=== PATIENT | male | born 1950 | race Caucasian/White ===

== ENCOUNTER 2017-10-23 00:47 | Emergency (ER) | payer OTHER ==
--- NOTE | 2017-10-23 01:30 | ED ---
Chest Pain HPI - General Chief Complaint: Chest Pain Stated Complaint: Chest Pain/Hx AFib Time Seen by Provider: 10/23/17 01:22 Source: patient, family Mode of arrival: wheelchair Limitations: no limitations - History of Present Illness Initial Comments: This patient is a 66-year-old man who presents to be evaluated for palpitations and chest tightness. The patient states that this is identical to previous episodes in which she has had atrial fibrillation. He states that he tried to manage at home with his medication, and when the symptoms did not resolve after about 3 hours he decided to be seen here. He states that now the symptoms have entirely resolved. The patient denies having had any diaphoresis, nausea or vomiting. MD Complaint: chest pain, other (Palpitations) Onset/Timin -: hour(s) Onset: during rest Pain Location: substernal Pain Radiation: none Severity: mild Quality: tightness Consistency: constant, now resolved Improves With: nothing Worsens With: nothing Treatments Prior to Arrival: other - Related Data Home Medications Medication Instructions Recorded Confirmed Enalapril/Hydrochlorothiazide 1 tab PO DAILY 12/11/14 10/23/17 [Vaseretic 5-12.5 mg] Insulin NPH Hum/Reg Insulin Hm 50 unit SQ BID 12/11/14 10/23/17 [NovoLIN 70-30 100 UNIT/ML VIAL] Metoprolol Tartrate [Lopressor] 50 mg PO BID 12/11/14 10/23/17 Simvastatin [Zocor] 80 mg PO HS 12/11/14 10/23/17 Sotalol HCl [Betapace] 80 mg PO BID 12/11/14 10/23/17 Warfarin [Coumadin] 2.5 mg PO DIRECTED 12/11/14 10/23/17 Warfarin [Coumadin] 5 mg PO DIRECTED 12/11/14 10/23/17 glyBURIDE [Diabeta] 10 mg PO AC-BID 12/11/14 10/23/17 metFORMIN HCL 1,000 mg PO BID 12/11/14 10/23/17 Allergies Allergy/AdvReac Type Severity Reaction Status Date / Time No Known Allergies Allergy Verified 10/23/17 00:51 Review of Systems ROS Statement: Those systems with pertinent positive or pertinent negative responses have been documented in the HPI. ROS Other: All systems not noted in ROS Statement are negative. Constitutional: Denies: fever, chills, weakness Respiratory: Reports: dyspnea. Denies: cough, wheezes Cardiovascular: Reports: chest pain, palpitations. Denies: orthopnea, edema, syncope Gastrointestinal: Denies: abdominal pain, nausea, vomiting Musculoskeletal: Denies: back pain Skin: Denies: rash Neurological: Denies: headache, weakness, numbness EKG Findings - EKG Results: EKG: interpreted by EDYTA MONROY, sinus rhythm (Rate approximately 74 bpm), normal axis, normal QRS, normal ST/T, no acute changes - [place], Pacemaker, Normal: Normal tracing: normal tracing Past Medical History Past Medical History: Atrial Fibrillation, Diabetes Mellitus, Hyperlipidemia, Hypertension History of Any Multi-Drug Resistant Organisms: None Reported Past Surgical History: Back Surgery Past Psychological History: No Psychological Hx Reported Smoking Status: Never smoker Past Alcohol Use History: None Reported Past Drug Use History: None Reported General Exam Limitations: no limitations General appearance: alert, in no apparent distress Head exam: Present: atraumatic, normocephalic Eye exam: Present: normal appearance. Absent: scleral icterus, conjunctival injection ENT exam: Present: normal oropharynx Neck exam: Present: normal inspection Respiratory exam: Present: normal lung sounds bilaterally. Absent: respiratory distress, wheezes, rales, rhonchi, stridor, chest wall tenderness, accessory muscle use, decreased breath sounds Cardiovascular Exam: Present: regular rate, normal rhythm, normal heart sounds. Absent: systolic murmur, diastolic murmur, rubs, gallop GI/Abdominal exam: Present: soft. Absent: distended, tenderness, guarding, rebound, mass Extremities exam: Present: normal inspection, normal capillary refill. Absent: pedal edema, calf tenderness Back exam: Present: normal inspection. Absent: CVA tenderness (R), CVA tenderness (L) Neurological exam: Present: alert Skin exam: Present: warm, dry, intact, normal color. Absent: rash Course Vital Signs 10/23/17 10/23/17 10/23/17 00:47 03:04 03:16 Temperature 98 F 98.9 F 97.7 F Pulse Rate 74 60 88 Respiratory 20 18 18 Rate Blood Pressure 193/83 165/75 149/72 O2 Sat by Pulse 100 100 98 Oximetry Chest Pain [facility] Patient is a 66-year-old man presenting with what sounds like episode of paroxysmal atrial fibrillation. He states the symptoms have subsequently resolved. His workup here is negative. Discussed admission to observe on the monitor and have serial cardiac enzymes, but the patient declines. He states that he has been through this before, and feels he has a good awareness of the problem. He is going to follow-up with the beater lead as outpatient. He does agree to return should any symptoms recur or if there are any new symptoms. Disposition Clinical Impression: Chest pain Disposition: HOME SELF-CARE Condition: Good Instructions: Chest Pain (ED) Is patient prescribed a controlled substance at d/c from ED?: No Referrals: Natanael Lobo MD [Primary Care Provider] - 1-2 days
[2017-10-23 02:01] LABS: Basophils % (A) 0 %; Eosinophils # (A) 0.8 k/uL (0-0.7); Eosinophils % (A) 8 %; HCT 36.2 % (39.0-53.0); HGB 11.9 gm/dL (13.0-17.5); Lymphocytes # (A) 2.4 k/uL (1.0-4.8); Lymphocytes % (A) 23 %; MCH 29.4 pg (25.0-35.0); MCV 89.3 fL (80.0-100.0); Mean Platelet Volume 7.4; Monocytes # (A) 0.6 k/uL (0-1.0); Monocytes % (A) 6 %; Neutrophils # (A) 6.5 k/uL (1.3-7.7); Neutrophils % (A) 61 %; Platelet Count 198 k/uL (150-450); RBC 4.05 m/uL (4.30-5.90); RDW 13.6 % (11.5-15.5); WBC 10.6 k/uL (3.8-10.6)
--- NOTE | 2017-10-23 02:01 | XR ---
EXAMINATION TYPE: XR chest 1V portable DATE OF EXAM: 10/23/2017 COMPARISON: 04/14/2011 HISTORY: Atrial fibrillation TECHNIQUE: Single frontal view of the chest is obtained. FINDINGS: Heart and mediastinum are normal. Lungs are clear. Diaphragm is normal. Bony thorax appear s normal. IMPRESSION: Normal chest. There is clearing of minimal atelectasis at left lung base compared to old exam.
[2017-10-23 02:14] LABS: D-Dimer 0.2 mg/L FEU (<0.60); INR 2.5 (<1.2); Partial Thromboplastin Time 34.2 sec (22.0-30.0); Prothrombin Time 22.3 sec (9.0-12.0)
[2017-10-23 02:23] LABS: Calcium 9.4 mg/dL (8.4-10.2); Magnesium 1.6 mg/dL (1.6-2.3); Potassium 4.4 mmol/L (3.5-5.1); Total Bilirubin 0.3 mg/dL (0.2-1.3); Total Protein 6.7 g/dL (6.3-8.2)
[2017-10-23 02:27] LABS: Creatine Kinase 139 U/L (55-170)
[2017-10-23 02:40] LABS: Creatine Kinase MB 1.3 ng/mL (0.0-2.4); Troponin I <0.012 ng/mL (0.000-0.034)
[2017-10-23 03:05] VITALS: RESP 18
[2017-10-23 03:17] VITALS: BP 149/72; PULSE 88; TEMP 97.7
== END 2017-10-23 03:17 | disposition home or self-care (01) ==
LOC: EC 00:47
DX: R07.2 Precordial pain (principal); R00.2 Palpitations; I48.91 Unspecified atrial fibrillation; E11.9 Type 2 diabetes mellitus without complications; E78.5 Hyperlipidemia, unspecified; I10 Essential (primary) hypertension; Z79.01 Long term (current) use of anticoagulants; Z79.4 Long term (current) use of insulin; Z79.899 Other long term (current) drug therapy
CPT/HCPCS: 36415; 71045; 80053; 82150; 82550; 82553; 83690; 83735; 84484; 85025; 85379; 85610; 85730; 93005; 99285

== ENCOUNTER → 2017-12-29 | Day surgery (SDC) | payer MEDICARE, OTHER ==
[2017-12-26 13:14] VITALS: BMI 32.6
[~2017-12-29] MED LIST: LIDOCAINE 1% INJ 10MG/ML (20 ML MDV) ONE; LIDOCAINE 1% INJ 10MG/ML (20 ML MDV) SQ ONE; MIDAZOLAM 2 MG/2 ML VIAL IVP ONE; MIDAZOLAM 2 MG/2 ML VIAL ONE; SODIUM CHLORIDE 0.9% 1,000 ML IV SCH; SODIUM CHLORIDE 0.9% 500 ML IV ONE; ceFAZolin 2,000 MG in DEXTROSE/WATER 1 50ML.BAG IVPB ONE; ceFAZolin IN SWFI 2 GM/20 ML SYRINGE IVP ONE
[2017-12-29 11:21] VITALS: BP 169/84; PULSE 57; TEMP 98.9
[2017-12-29 11:46] LABS: Glucose,Whole Blood 98 mg/dL (75-99)
[2017-12-29 11:59] LABS: Prothrombin Time 26.6 sec (9.0-12.0)
--- NOTE | 2017-12-29 12:39 | P.PCN ---
Preoperative Diagnosis: Loop monitor implant Primary physicians: Dr. Natanael Lobo Business Analyst: Dr. Arreguin Indication: Recurrent palpitations, possible atrial fibrillation, no documentation, Sick Sinus Syndrome/chronotropic competence Patient was brought to the EP lab in a fasting state. Written informed consent was obtained prior to the procedure. The left pectoral area was prepped and draped per protocol. Intravenous antibiotic was administered preoperatively. A subcutaneous Loop monitor was implanted successfully and the wound was closed per protocol. The device was programmed to detect significant cam- arrhythmic and tachy-arrhythmic events, per protocol. Device and programming details: A. fib protocol Patient underwent EP procedure under conscious sedation/moderate sedation, monitoring of the level of consciousness and physiologic parameters including but not limited to vital signs and oxygenation. Patient tolerated the procedure well without any acute complications. Start time: 1217 Stop time: 1225 8 minutes
[2017-12-29 13:04] VITALS: RESP 18
== END | disposition home or self-care (01) ==
LOC: CATHEP 10:50
PROVIDERS: ATTEND Internal Medicine Clinical Cardiac Electrophysiology
DX: R00.2 Palpitations (principal); I49.5 Sick sinus syndrome
CPT/HCPCS: 33282; 85610; C1764; J2250; J2001; J0690

== ENCOUNTER 2018-09-13 07:40 | Day surgery (SDC) | payer MEDICARE, OTHER ==
[2018-09-08 09:40] VITALS: BMI 33.2
--- NOTE | 2018-09-12 13:15 | HP ---
HISTORY AND PHYSICAL Surgery is 09/13/2018. Tay Mueller is a 67-year-old patient seen with progressive left knee pain. We discussed options. He elected to proceed with arthroscopy. Consent was obtained. Cardiac clearance by Dr. Matos. PAST MEDICAL HISTORY: Hypertension, hyperlipidemia, insulin-dependent diabetes, atrial fibrillation. PAST SURGICAL HISTORY: Sinus surgery. DAILY MEDICATIONS: 1. Lisinopril/hydrochlorothiazide. 2. Metformin. 3. Metoprolol. 4. Novolin insulin. 5. Simvastatin. 6. Xarelto. ALLERGIES: None. SOCIAL HISTORY: Denies tobacco use. PHYSICAL EXAMINATION: Physical evaluation of the left knee: His range of motion is 0 to 115 degrees. Mild effusion. Tenderness medial joint line. Positive medial Thomas's. Ligaments stable. Hip rotation without pain. Distal neurovascular exam intact. Left knee radiographs revealed moderate osteoarthritis. IMPRESSION: 1. Internal derangement left knee with medial meniscal tear. 2. Left knee osteoarthritis. PLAN: Left knee arthroscopy with partial meniscectomy and debridement. MMODL / IJN: [id number] /
[~2018-09-13 07:40] MED LIST changes: +LACTATED RINGERS 1,000 ML IV SCH; +LIDOCAINE 1% 20 ML VIAL (10MG/ML) FOR IV START INTRADERMA PRN; -LIDOCAINE 1% INJ 10MG/ML (20 ML MDV) ONE; -LIDOCAINE 1% INJ 10MG/ML (20 ML MDV) SQ ONE; -MIDAZOLAM 2 MG/2 ML VIAL IVP ONE; -MIDAZOLAM 2 MG/2 ML VIAL ONE; +ONDANSETRON 4 MG/2 ML VIAL IVP ONE; -SODIUM CHLORIDE 0.9% 1,000 ML IV SCH; -SODIUM CHLORIDE 0.9% 500 ML IV ONE; -ceFAZolin 2,000 MG in DEXTROSE/WATER 1 50ML.BAG IVPB ONE
[2018-09-13 08:42] LABS: Glucose,Whole Blood 181 mg/dL (75-99)
[2018-09-13] MEDS ORDERED: fentaNYL (PF) 50 MCG/ML 2 ML AMP ONE (09:48)
[2018-09-13] MEDS ORDERED: PROPOFOL 10 MG/ML 20 ML VIAL IV ONE (09:48)
[2018-09-13] MEDS ORDERED: MIDAZOLAM 2 MG/2 ML VIAL ONE (09:48)
[2018-09-13] MEDS ORDERED: DEXAMETHASONE SOD PHOS (MDV) 100 MG/10 ML VIAL ONE (09:48)
[2018-09-13] MEDS ORDERED: LIDOCAINE 1% INJ 10MG/ML (20 ML MDV) ONE (09:48)
[2018-09-13] MEDS ORDERED: BUPIVACAIN-EPI 0.5%-1:200,000 30 ML VIAL INTRAARTIC ONE (09:52)
[2018-09-13 10:37] VITALS: TEMP 97.4
--- NOTE | 2018-09-13 10:40 | P.OP ---
Date of Procedure: 09/13/18 Preoperative Diagnosis: Internal derangement left knee Postoperative Diagnosis: 1. Tear lateral meniscus left knee 2. Grade 4 chondromalacia medial femoral condyle left knee 3. Reactive synovitis medial, lateral and suprapatellar compartments left knee Procedure(s) Performed: 1. Arthroscopic partial lateral meniscectomy left knee 2. Arthroscopic chondroplasty medial femoral condyle left knee 3. Arthroscopic microfracture medial femoral condyle left knee 4. Arthroscopic partial synovectomy medial, lateral and suprapatellar compartments left knee Anesthesia: GUSA, local Surgeon: Manish Vergara Estimated Blood Loss (ml): 7 Pathology: none sent Condition: stable Disposition: PACU Indications for Procedure: 67-year-old patient seen with progressive left knee pain. After having treatment options discussed, he elected to proceed with arthroscopy. Operative Findings: See description of procedure Description of Procedure: Patient was taken to the operative suite. Patient underwent a general anesthetic by the department of anesthesia. Patient was given preoperative antibiotics. The left lower extremity was placed in a well-padded arthroscopic leg humphries. The left leg was prepped and draped in the normal sterile orthopedic fashion. A lateral parapatellar and suprapatellar incision was made. Trochars were inserted. Arthroscopy was initiated. Suprapatellar pouch revealed diffuse thick reactive synovitis. The patellofemoral joint appeared to articulate congruently. There was grade 1 chondromalacia with no osteochondral tears present. The scope was guided into the medial gutter. No loose bodies or plica were identified. The scope was then guided into the medial compartment. A medial parapatellar incision was made. Trocar inserted followed by probe. The medial meniscus was found to be stable. There was an area of grade 4 chondromalacia medial femoral condyle with large osteochondral flap tears. There was thick reactive synovitis anteriorly. I performed a chondroplasty of the medial femoral condyle down to stable tissue. I performed a partial synovectomy decompressing thick reactive synovitis. There was good decompression of synovitis. There was an area of exposed bone medial femoral condyle. I performed a microfracture to that area penetrating the bone with resultant bleeding at the microfracture site. The residual osteochondral surface was stable. Scope and probe were then guided into the intercondylar notch. Cruciates were identified, probed and found to be stable. The scope and probe were then guided into lateral compartment. There was a radial tear invo lving the midbody lateral meniscus. No some superficial fraying of the lateral meniscus. There was a grade 1 chondromalacia lateral tibial plateau with no osteochondral tears present. There was thick reactive synovitis anteriorly. I performed a partial lateral meniscectomy down to stable tissue. I performed a partial synovectomy decompressing the thick reactive synovitis. The residual meniscus was stable. There was good decompression of synovitis. The scope was in guided back into the suprapatellar compartment. I introduced a motorized shaver into the suprapatellar compartment. I debrided some piecemeal fragments of meniscus I encountered. I performed a partial synovectomy decompressing the reactive synovitis. The shaver was removed. There was good decompression of synovitis. I took one more look on the entire knee, no residual debris. Instruments were now removed from the joint. The joint was infiltrated with .25% Marcaine. Steri-Strips were applied to the portal sites. Sterile dressings were applied. The patient was placed into a NIKOLAI hose. No tourniquet was utilized. The patient was awakened, transferred to a bed and taken to recovery stable satisfactory condition.
[2018-09-13] MEDS: HYDROmorphone 0.5 MG/0.5 ML SYRINGE IVP PRN ×2 (10:44→10:51)
[2018-09-13] MEDS ORDERED: KETOROLAC 30 MG/ML 1 ML VIAL IVP ONE (10:44)
[2018-09-13 10:49] LABS: Glucose,Whole Blood 181 mg/dL (75-99)
[2018-09-13 11:44] VITALS: RESP 18
[2018-09-13] MEDS ORDERED: ONDANSETRON 4 MG/2 ML VIAL IVP ONE (12:45)
[2018-09-13 13:19] VITALS: BP 174/72; PULSE 53
[2018-09-13 13:24] LABS: Glucose,Whole Blood 231 mg/dL (75-99)
== END 2018-09-13 13:30 | disposition home or self-care (01) ==
LOC: OR 07:40
PROVIDERS: ATTEND Orthopaedic Surgery
DX: S83.282A Other tear of lateral meniscus, current injury, left knee, initial encounter (principal); M65.862 Other synovitis and tenosynovitis, left lower leg; I48.91 Unspecified atrial fibrillation; M94.262 Chondromalacia, left knee; M17.12 Unilateral primary osteoarthritis, left knee; E78.5 Hyperlipidemia, unspecified; E11.9 Type 2 diabetes mellitus without complications; N28.9 Disorder of kidney and ureter, unspecified; I10 Essential (primary) hypertension; Z79.01 Long term (current) use of anticoagulants; Z79.4 Long term (current) use of insulin; Z79.899 Other long term (current) drug therapy; X58.XXXA Exposure to other specified factors, initial encounter
CPT/HCPCS: 29881; 29879; J2250; J2405; J2001; J3010; J1885; J1100; J2704; J1170; J0690

== ENCOUNTER 2020-01-11 06:21 | Day surgery (SDC) | payer MEDICARE, OTHER ==
[~2020-01-11 06:21] MED LIST changes: +ALPRAZolam 0.25 MG TAB PO PRN; +ALPRAZolam 0.5 MG TAB PO PRN; +ASPIRIN 325 MG TAB PO STA; +ATORVASTATIN 80 MG TAB PO STA; -LACTATED RINGERS 1,000 ML IV SCH; -LIDOCAINE 1% 20 ML VIAL (10MG/ML) FOR IV START INTRADERMA PRN; +NITROGLYCERIN SL TABS 0.4 MG TAB SUBLINGUAL PRN; -ONDANSETRON 4 MG/2 ML VIAL IVP ONE; +SODIUM CHLORIDE 0.9% 1,000 ML in EMPTY BAG 1 BAG IV ONE; -ceFAZolin IN SWFI 2 GM/20 ML SYRINGE IVP ONE
[2020-01-11 06:57] LABS: Glucose,Whole Blood 137 mg/dL (75-99)
[2020-01-11] MEDS ORDERED: MIDAZOLAM 2 MG/2 ML VIAL IV ONE (10:15)
[2020-01-11] MEDS ORDERED: LIDOCAINE 1% INJ 10MG/ML (20 ML MDV) SQ ONE (10:19)
[2020-01-11] MEDS ORDERED: BIVALIRUDIN BOLUS 250 MG/50 ML IV ONE (10:54)
[2020-01-11] MEDS ORDERED: BIVALIRUDIN 250 MG in SODIUM CHLORIDE 0.9% 50 ML IV ONE (10:55)
[2020-01-11] MEDS ORDERED: TICAGRELOR 90 MG TAB PO ONE (11:10)
[2020-01-11] MEDS ORDERED: NITROGLYCERIN 1000MCG/10ML SYRINGE INTRACORON ONE (11:16)
[2020-01-11] MEDS ORDERED: IOPAMIDOL-370 125ML BTL INJ ONE (11:21)
[2020-01-11] MEDS ORDERED: MAG HYDROX/AL HYDROX/SIMETH 30 ML CUP PO PRN (11:27)
[2020-01-11] MEDS ORDERED: NITROGLYCERIN SL TABS 0.4 MG TAB SUBLINGUAL PRN (11:27)
[2020-01-11] MEDS ORDERED: ATROPINE SULFATE 0.1 MG/ML 10ML SYRINGE IV PRN (11:27)
[2020-01-11] MEDS ORDERED: ZOLPIDEM 5 MG TAB PO PRN (11:27)
[2020-01-11] MEDS ORDERED: RX INFO: IV CONTRAST WAS GIVEN 1 EACH MISC MISCELLANE PRN (11:27)
[2020-01-11] MEDS ORDERED: SODIUM CHLORIDE 0.9% 1,000 ML IV SCH (11:30)
--- NOTE | 2020-01-11 12:10 | CC ---
CARDIAC CATHETERIZATION REPORT INDICATION: Exertional shortness of breath with abnormal stress test showing ischemia in LAD distribution. PROCEDURE NOTE: After obtaining informed consent, left heart catheterization and coronary angiogram were performed via the right femoral artery using standard Vanessa catheters. Patient tolerated the procedure well without any obvious immediate complications. The patient had elevated potassium prior to catheterization,. I gave him Kayexalate. He has renal insufficiency. I brought him early and hydrated him this morning. He understands the risk of contrast-induced nephropathy. FINDINGS: 1. HEMODYNAMICS: Left ventricular end-diastolic pressure is 14-16 mm. There is no significant gradient across the aortic valve. 2. LEFT VENTRICULOGRAM: Left ventricular is not performed. 3. ANGIOGRAPHIC DATA: LEFT MAIN CORONARY ARTERY: Left main coronary artery appears calcified but is free of significant stenosis. Divides into left anterior descending coronary artery and circumflex coronary artery and ramus intermedius. CIRCUMFLEX CORONARY ARTERY: A codominant system, appears calcified with mild nonobstructive CAD. Ramus intermedius, which is a small caliber vessel, shows a 60%-70% ostial lesion. LAD has a focal heavily calcified 90% stenosis in its midportion. Right coronary: There are extensive collaterals to the distal RCA. RIGHT CORONARY ARTERY: Right coronary artery is chronically occluded in its midportion. CONCLUSION: 1. Three-vessel coronary artery disease as described above. 2. Calcified vessels. 3. Focal stenotic lesion in the mid LAD, which explains the ischemia, chronically occluded right. PLAN: I reviewed angiographic data with Dr. Montgomery the on-call treating plant supervisor, who will proceed with angioplasty of the LAD. The patient is having recurrent episodes of atrial fibrillation and will probably benefit from atrial fibrillation. This can be addressed at a later time. After the angioplasty, he will spend the night and will continue to hydrate him and check the electrolytes on him tomorrow morning. MMODL / IJN: [id number] /
--- NOTE | 2020-01-11 12:56 | PTCA ---
PERCUTANEOUSTRANS CORORONARY ANGIOGRAPHY DATE OF SERVICE: 01/11/2020. PERFORMING PHYSICIAN: Ebenezer Montgomery MD. PROCEDURE PERFORMED: Successful stenting of the mid left anterior descending artery using 2.75 x 12 mm Xience KEVIN with an excellent angiographic result and reduction of stenosis from 99% to 0%. INDICATION: This is a 69-year-old gentleman with chronic kidney disease, as well as hypertension and dyslipidemia and paroxysmal atrial fibrillation, who was experiencing symptoms of chest discomfort. He underwent a stress test and that revealed an anterior ischemia. Because of that, a heart catheterization was advised. The patient underwent a heart catheterization by Dr. Selby and that revealed critical disease involving the mid LAD with very eccentric and calcified lesion. The decision was made toward percutaneous coronary intervention. APPROACH: Right common femoral artery. COMPLICATION: None. LEVEL OF SEDATION: Moderate with sedation length of 27 minutes. PROCEDURE DESCRIPTION: Please refer to the diagnostic heart catheterization that was performed by Dr. Selby earlier today. Anticoagulation was initiated using Angiomax. Subsequently I did engage the left main using an XP35 LAD guide. I did cross the lesion using a whisper wire. Subsequently, I did predilatation initially using 1.5 mm balloon and subsequently 2.5 mm. Both balloons were inflated under 12 atmospheres for 20 seconds. Subsequently, I deployed 2.75 x 12 mm Xience KEVIN where the stent was positioned under fluoroscopy guidance and deployed under 12 atmospheres for 20 seconds. The following angiogram showed excellent angiographic results and the procedure was completed without any complication. POSTPROCEDURE MANAGEMENT: 1. Anticoagulation and anti-platelet as well as anticoagulation. 2. Monitor the patient for the next 24 hours. 3. Standard groin care. 4. Follow up with the patient. MMODL / IJN: [id number] /
[2020-01-11 14:32] LABS: Glucose,Whole Blood 126 mg/dL (75-99)
[2020-01-11 15:36] VITALS: BMI 33.1
[2020-01-11 17:00] LABS: Glucose,Whole Blood 116 mg/dL (75-99)
[2020-01-11 18:05] VITALS: RESP 16
[2020-01-11] MEDS ORDERED: SOTALOL 80 MG TAB PO SCH (21:00)
[2020-01-11 21:17] LABS: Glucose,Whole Blood 303 mg/dL (75-99)
[2020-01-11] MEDS: TICAGRELOR 90 MG TAB PO SCH (21:28)
[2020-01-11] MEDS: METOPROLOL TARTRATE 50 MG TAB PO SCH (21:28)
[2020-01-11] MEDS: INSULN ASP PRT/INSULIN ASPART 100 UNIT/ML 10 ML VIAL SQ SCH (22:10)
[2020-01-12 00:38] LABS: Glucose,Whole Blood 119 mg/dL (75-99)
[2020-01-12 04:11] LABS: Glucose,Whole Blood 48 mg/dL (75-99)
[2020-01-12 04:29] LABS: Glucose,Whole Blood 65 mg/dL (75-99)
[2020-01-12 04:49] LABS: Glucose,Whole Blood 91 mg/dL (75-99)
[2020-01-12 06:27] LABS: Basophils # (A) 0.1 k/uL (0-0.2); Basophils % (A) 0 %; Eosinophils # (A) 0.2 k/uL (0-0.7); Eosinophils % (A) 1 %; HCT 39.7 % (39.0-53.0); HGB 12.5 gm/dL (13.0-17.5); Lymphocytes # (A) 2.2 k/uL (1.0-4.8); Lymphocytes % (A) 16 %; MCH 28.5 pg (25.0-35.0); MCHC 31.4 g/dL (31.0-37.0); MCV 90.8 fL (80.0-100.0); Mean Platelet Volume 7.9; Monocytes # (A) 0.9 k/uL (0-1.0); Monocytes % (A) 6 %; Neutrophils # (A) 10.3 k/uL (1.3-7.7); Neutrophils % (A) 75 %; Platelet Count 219 k/uL (150-450); RBC 4.38 m/uL (4.30-5.90); RDW 13.1 % (11.5-15.5); WBC 13.7 k/uL (3.8-10.6)
[2020-01-12 06:33] LABS: Calcium 9.6 mg/dL (8.4-10.2); Potassium 4.5 mmol/L (3.5-5.1)
[2020-01-12 06:49] LABS: Glucose,Whole Blood 276 mg/dL (75-99)
[2020-01-12] MEDS: INSULN ASP PRT/INSULIN ASPART 100 UNIT/ML 10 ML VIAL SQ SCH (07:04)
[2020-01-12 08:10] VITALS: PULSE 63; TEMP 97.9
[2020-01-12 08:43] VITALS: BP 124/63
[2020-01-12] MEDS ORDERED: ATORVASTATIN 40 MG TAB PO SCH (09:00)
[2020-01-12] MEDS ORDERED: LISINOPRIL-HCTZ 20-12.5 MG 1 EACH TAB PO SCH (09:00)
[2020-01-12] MEDS: METOPROLOL TARTRATE 50 MG TAB PO SCH (10:25)
[2020-01-12] MEDS: TICAGRELOR 90 MG TAB PO SCH (10:26)
--- NOTE | 2020-01-12 10:52 | PN ---
PROGRESS NOTE Mr. Mueller is a 69-year-old male with a known history of atrial arrhythmia, history of hyperlipidemia, who had an abnormal myocardial perfusion imaging. Underwent cardiac catheterization and was found to have significant obstructive disease involving the LAD. Underwent stenting by Dr. Montgomery. He is doing well this morning. Ambulating without difficulty. Denying any chest pain. No dizziness. No palpitation. On the monitor, he had some episodes of atrial arrhythmia with what appears to be atrial fibrillation. MEDICATIONS: He continues to be on Lipitor 40 mg daily, lisinopril HCT 20-12.5 mg daily, metoprolol tartrate 50 mg twice a day, sotalol 80 mg twice a day, Brilinta 90 mg twice a day. PHYSICAL EXAMINATION: Blood pressure 109/50 with a heart in the 60s. LUNGS: Clear. HEART: Regular rate and rhythm S1, S2. No S3 with systolic ejection murmur. No diastolic murmur. No rub. ABDOMEN: Soft, nontender. EXTREMITIES: No edema. LAB DATA: BUN and creatinine 23 and 1.6. Potassium 4.5. Hemoglobin of 12.5. IMPRESSION: 1. Status post stenting of the left anterior descending. 2. Paroxysmal atrial fibrillation. 3. Hypertension. 4. Hyperlipidemia. 5. Chronic kidney disease. RECOMMENDATION: Patient will be discharged home today. I will re-initiate the treatment with Xarelto. We will hold his aspirin. He will follow up with Dr. Selby next week. MMODL / IJN: [id number] /
== END 2020-01-12 11:30 | disposition home or self-care (01) ==
LOC: CATHCVL 06:21 → 3NCARDOBS 11:20 → CATHCVL 01-12 11:30
PROVIDERS: ATTEND Internal Medicine Cardiovascular Disease
DX: I25.10 Atherosclerotic heart disease of native coronary artery without angina pectoris (principal); I25.82 Chronic total occlusion of coronary artery; I48.0 Paroxysmal atrial fibrillation; I12.9 Hypertensive chronic kidney disease with stage 1 through stage 4 chronic kidney disease, or unspecified chronic kidney disease; N18.9 Chronic kidney disease, unspecified; E78.5 Hyperlipidemia, unspecified; Z79.02 Long term (current) use of antithrombotics/antiplatelets; Z79.899 Other long term (current) drug therapy
CPT/HCPCS: 93458; 80048; 85025; C9600; C1769 ×4; C1760; C1725 ×2; C1887; C1894; C1874; J2250; J2001; J0583; Q9967

== ENCOUNTER → 2021-10-22 | Outpatient (CLI) | payer MEDICARE, OTHER ==
[2021-10-22 08:19] LABS: HCT 35.5 % (39.0-53.0); HGB 11.4 gm/dL (13.0-17.5); MCH 29.5 pg (25.0-35.0); MCHC 32.1 g/dL (31.0-37.0); Mean Platelet Volume 7.7; Platelet Count 219 k/uL (150-450); RBC 3.86 m/uL (4.30-5.90); RDW 13.8 % (11.5-15.5); WBC 9.5 k/uL (3.8-10.6)
[2021-10-22 14:47] LABS: Ferritin 60.7 ng/mL (22.0-322.0)
[2021-10-22 14:48] LABS: % Iron Saturation 18.91 (15.00-50.00)
[2021-10-22 19:34] LABS: Eosinophils # (M) 0.19 k/uL (0-0.7); Lymphocytes # (M) 3.33 k/uL (1.0-4.8); Monocytes # (M) 0.67 k/uL (0-1.0); Neutrophils # (M) 5.32 k/uL (1.3-7.7); Neutrophils % (M) 56 %; Nucleated Red Blood Cells 0 /100 WBC (0-0); Total Cells Counted 100
== END | disposition home or self-care (01) ==
LOC: LABWHC1 07:02
PROVIDERS: ATTEND Internal Medicine
DX: D72.829 Elevated white blood cell count, unspecified (principal); D64.9 Anemia, unspecified
CPT/HCPCS: 36415; 82607; 82728; 82746; 83540; 83550; 85025

== ENCOUNTER 2021-12-09 07:04 | Emergency (ER) | payer MEDICARE, OTHER ==
[2021-12-09 07:09] VITALS: RESP 18; TEMP 98.1
[2021-12-09] MEDS ORDERED: SODIUM CHLORIDE 0.9% 1,000 ML IV STA ×2 (07:15→08:42)
[2021-12-09] MEDS ORDERED: DICYCLOMINE 10 MG/ML 2 ML AMP IM STA (07:15)
[2021-12-09] MEDS ORDERED: ONDANSETRON 4 MG/2 ML VIAL IVP STA (07:15)
[2021-12-09] MEDS ORDERED: FAMOTIDINE 20 MG/2 ML VIAL IV STA (07:16)
--- NOTE | 2021-12-09 07:18 | ED ---
General Adult HPI - General Chief complaint: Abdominal Pain Stated complaint: Abdominal pain, diarrhea Time Seen by Provider: 12/09/21 07:10 Source: patient, RN notes reviewed Mode of arrival: ambulatory Limitations: no limitations - History of Present Illness Initial comments: Patient is a pleasant 71-year-old male presenting to the emergency department abdominal discomfort. Onset of symptoms was today. Patient has been having diarrhea a couple of times daily for the past almost 2 weeks. Patient has some nausea and dry heaves this morning. No fever. No history of similar symptoms previously. Abdominal pain is mostly left lower abdomen. - Related Data Home Medications Medication Instructions Recorded Confirmed Insulin NPH Hum/Reg Insulin Hm 65 unit SQ BID 12/11/14 01/11/20 [NovoLIN 70-30 100 UNIT/ML VIAL] Metoprolol Tartrate [Lopressor] 50 mg PO BID 12/11/14 01/11/20 Simvastatin [Zocor] 80 mg PO DAILY 12/11/14 01/11/20 Sotalol HCl [Betapace] 80 mg PO BID 12/11/14 01/11/20 metFORMIN HCL [Glucophage] 1,000 mg PO BID 12/11/14 01/11/20 Lisinopril-Hctz 20-12.5 mg 1 tab PO DAILY 09/08/18 01/11/20 [Zestoretic 20-12.5] Rivaroxaban [Xarelto] 20 mg PO DAILY 09/08/18 01/11/20 Previous Rx's Medication Instructions Recorded Sodium Polystyrene Sulfonate 30 gm PO ONCE #1 dose 01/10/20 [Kayexalate] Nitroglycerin Sl Tabs [Nitrostat] 0.4 mg SUBLINGUAL Q5M PRN #25 tab 01/12/20 Ticagrelor [Brilinta] 90 mg PO BID #180 tab 01/12/20 Ketorolac [Toradol] 10 mg PO Q6HR PRN #15 tab 12/09/21 Metoclopramide HCl [Reglan] 10 mg PO Q6HR PRN #15 tablet 12/09/21 Allergies Allergy/AdvReac Type Severity Reaction Status Date / Time No Known Allergies Allergy Verified 12/09/21 07:09 Review of Systems ROS Statement: Those systems with pertinent positive or pertinent negative responses have been documented in the HPI. ROS Other: All systems not noted in ROS Statement are negative. Constitutional: Denies: fever Eyes: Denies: eye pain ENT: Denies: ear pain Respiratory: Denies: cough Cardiovascular: Denies: chest pain Endocrine: Reports: fatigue Gastrointestinal: Reports: as per HPI, abdominal pain, nausea, diarrhea Genitourinary: Denies: dysuria Musculoskeletal: Denies: back pain Skin: Denies: rash Neurological: Denies: weakness Past Medical History Past Medical History: Atrial Fibrillation, Diabetes Mellitus, Hyperlipidemia, Hypertension, Osteoarthritis (OA), Renal Disease Additional Past Medical History / Comment(s): Stage 3 Kidney Disease. History of Any Multi-Drug Resistant Organisms: None Reported Past Surgical History: Back Surgery, Orthopedic Surgery Additional Past Surgical History / Comment(s): Left knee surgery. Past Anesthesia/Blood Transfusion Reactions: Motion Sickness Past Psychological History: No Psychological Hx Reported Smoking Status: Never smoker Past Alcohol Use History: None Reported Past Drug Use History: None Reported - Past Family History Mother Family Medical History: Cancer General Exam Limitations: no limitations General appearance: alert, in no apparent distress Head exam: Present: normocephalic Eye exam: Present: normal appearance Neck exam: Present: normal inspection Respiratory exam: Present: normal lung sounds bilaterally Cardiovascular Exam: Present: regular rate, normal rhythm Expanded Peripheral pulses: 2+: Posterior Tibialis (R), Posterior Tibialis (L) GI/Abdominal exam: Present: soft. Absent: tenderness Extremities exam: Present: normal inspection. Absent: pedal edema, calf tenderness Neurological exam: Present: alert Psychiatric exam: Present: normal affect, normal mood Skin exam: Present: normal color Course Vital Signs 12/09/21 12/09/21 07:05 10:08 Temperature 98.1 F Pulse Rate 60 55 L Respiratory 18 18 Rate Blood Pressure 200/70 180/65 O2 Sat by Pulse 99 98 Oximetry Medical Decision Making - Medical Decision Making Patient reevaluated and significantly improved with Toradol. Patient updated on results and need for follow-up. - Lab Data Result diagrams: 12/09/21 07:26 12/09/21 07:26 Lab Results 12/09/21 12/09/21 12/09/21 Range/Units 07:26 07:26 07:26 WBC 14.9 H (3.8-10.6) k/uL RBC 3.75 L (4.30-5.90) m/uL Hgb 11.1 L (13.0-17.5) gm/dL Hct 33.8 L (39.0-53.0) % MCV 90.2 (80.0-100.0) fL MCH 29.6 (25.0-35.0) pg MCHC 32.8 (31.0-37.0) g/dL RDW 13.6 (11.5-15.5) % Plt Count 201 (150-450) k/uL MPV 7.6 Neutrophils % 81 % Lymphocytes % 13 % Monocytes % 4 % Eosinophils % 1 % Basophils % 0 % Neutrophils # 12.1 H (1.3-7.7) k/uL Lymphocytes # 1.9 (1.0-4.8) k/uL Monocytes # 0.6 (0-1.0) k/uL Eosinophils # 0.1 (0-0.7) k/uL Basophils # 0.0 (0-0.2) k/uL PT 12.0 (9.0-12.0) sec INR 1.1 (<1.2) APTT 31.6 H (22.0-30.0) sec Sodium (137-145) mmol/L Potassium (3.5-5.1) mmol/L Chloride (98-107) mmol/L Carbon Dioxide (22-30) mmol/L Anion Gap mmol/L BUN (9-20) mg/dL Creatinine (0.66-1.25) mg/dL Est GFR (CKD-EPI)AfAm (>60 ml/min/1.73 sqM) Est GFR (CKD-EPI)NonAf (>60 ml/min/1.73 sqM) Glucose (74-99) mg/dL Calcium (8.4-10.2) mg/dL Total Bilirubin (0.2-1.3) mg/dL AST (17-59) U/L ALT (4-49) U/L Alkaline Phosphatase (38-126) U/L Total Protein (6.3-8.2) g/dL Albumin (3.5-5.0) g/dL Amylase (30-110) U/L Lipase (23-300) U/L Urine Color Light Yellow Urine Appearance Clear (Clear) Urine pH 5.0 (5.0-8.0) Ur Specific [place] 1.013 (1.001-1.035) Urine Protein 1+ H (Negative) Urine Glucose (UA) Negative (Negative) Urine Ketones Negative (Negative) Urine Blood Large H (Negative) Urine Nitrite Negative (Negative) Urine Bilirubin Negative (Negative) Urine Urobilinogen <2.0 (<2.0) mg/dL Ur Leukocyte Esterase Negative (Negative) Urine RBC 144 H (0-5) /hpf Urine WBC 1 (0-5) /hpf Urine Bacteria Rare H (None) /hpf Urine Mucus Rare H (None) /hpf 12/09/21 Range/Units 07:26 WBC (3.8-10.6) k/uL RBC (4.30-5.90) m/uL Hgb (13.0-17.5) gm/dL Hct (39.0-53.0) % MCV (80.0-100.0) fL MCH (25.0-35.0) pg MCHC (31.0-37.0) g/dL RDW (11.5-15.5) % Plt Count (150-450) k/uL MPV Neutrophils % % Lymphocytes % % Monocytes % % Eosinophils % % Basophils % % Neutrophils # (1.3-7.7) k/uL Lymphocytes # (1.0-4.8) k/uL Monocytes # (0-1.0) k/uL Eosinophils # (0-0.7) k/uL Basophils # (0-0.2) k/uL PT (9.0-12.0) sec INR (<1.2) APTT (22.0-30.0) sec Sodium 137 (137-145) mmol/L Potassium 5.2 H (3.5-5.1) mmol/L Chloride 107 (98-107) mmol/L Carbon Dioxide 20 L (22-30) mmol/L Anion Gap 10 mmol/L BUN 44 H (9-20) mg/dL Creatinine 2.01 H (0.66-1.25) mg/dL Est GFR (CKD-EPI)AfAm 38 (>60 ml/min/1.73 sqM) Est GFR (CKD-EPI)NonAf 33 (>60 ml/min/1.73 sqM) Glucose 198 H (74-99) mg/dL Calcium 9.1 (8.4-10.2) mg/dL Total Bilirubin 0.7 (0.2-1.3) mg/dL AST 28 (17-59) U/L ALT 26 (4-49) U/L Alkaline Phosphatase 60 (38-126) U/L Total Protein 7.3 (6.3-8.2) g/dL Albumin 4.4 (3.5-5.0) g/dL Amylase 63 (30-110) U/L Lipase 91 (23-300) U/L Urine Color Urine Appearance (Clear) Urine pH (5.0-8.0) Ur Specific [place] (1.001-1.035) Urine Protein (Negative) Urine Glucose (UA) (Negative) Urine Ketones (Negative) Urine Blood (Negative) Urine Nitrite (Negative) Urine Bilirubin (Negative) Urine Urobilinogen (<2.0) mg/dL Ur Leukocyte Esterase (Negative) Urine RBC (0-5) /hpf Urine WBC (0-5) /hpf Urine Bacteria (None) /hpf Urine Mucus (None) /hpf - Radiology Data Radiology results: report reviewed (Computed tomography scan of the abdomen and pelvis does show 1 mm to 2 mm left UVJ calculi with mild [place]. Sigmoid colon wall thickening could be peristalsis,) Disposition Clinical Impression: Kidney stone Disposition: HOME SELF-CARE Condition: Stable Instructions (If sedation given, give patient instructions): Kidney Stones (ED) Additional Instructions: Please do follow-up to primary care physician in the next day or 2 for recheck, have primary care physician review computed tomography scan. Please also follow-up with urology, number provided. Return for fever, vomiting, increased pain, worsening symptoms or other concerns. Prescription for pain medication and nausea medicine has been sent to pharmacy. Prescriptions: Metoclopramide HCl [Reglan] 10 mg PO Q6HR PRN #15 tablet PRN Reason: Nausea Ketorolac [Toradol] 10 mg PO Q6HR PRN #15 tab PRN Reason: Pain Is patient prescribed a controlled substance at d/c from ED?: No Referrals: Shandra Miller MD [Primary Care Provider] - 1-2 days Zev Baez MD [STAFF PHYSICIAN] - 1-2 days Time of Disposition: 10:55
[2021-12-09 08:01] LABS: Basophils % (A) 0 %; Eosinophils # (A) 0.1 k/uL (0-0.7); Eosinophils % (A) 1 %; HCT 33.8 % (39.0-53.0); HGB 11.1 gm/dL (13.0-17.5); Lymphocytes # (A) 1.9 k/uL (1.0-4.8); Lymphocytes % (A) 13 %; MCH 29.6 pg (25.0-35.0); MCHC 32.8 g/dL (31.0-37.0); MCV 90.2 fL (80.0-100.0); Mean Platelet Volume 7.6; Monocytes # (A) 0.6 k/uL (0-1.0); Monocytes % (A) 4 %; Neutrophils # (A) 12.1 k/uL (1.3-7.7); Neutrophils % (A) 81 %; Platelet Count 201 k/uL (150-450); RBC 3.75 m/uL (4.30-5.90); RDW 13.6 % (11.5-15.5); WBC 14.9 k/uL (3.8-10.6)
[2021-12-09 08:05] LABS: INR 1.1 (<1.2); Partial Thromboplastin Time 31.6 sec (22.0-30.0)
[2021-12-09 08:08] LABS: Albumin 4.4 g/dL (3.5-5.0); Calcium 9.1 mg/dL (8.4-10.2); Potassium 5.2 mmol/L (3.5-5.1); Total Bilirubin 0.7 mg/dL (0.2-1.3); Total Protein 7.3 g/dL (6.3-8.2)
[2021-12-09] MEDS ORDERED: MORPHINE SULFATE 4 MG/ML SYRINGE IVP STA (09:16)
--- NOTE | 2021-12-09 09:38 | CT ---
EXAMINATION TYPE: CT abdomen pelvis w con DATE OF EXAM: 12/09/2021 COMPARISON: 05/12/2012 HISTORY: Abdominal pain, diarrhea CT DLP: 2286.3 mGycm Automated exposure control for dose reduction was used. CONTRAST: CT scan of the abdomen pelvis is performed with IV Contrast, patient injected with 100 ml mL of Isovu e 370. FINDINGS- Subsegmental changes involving the lungs most typical of atelectasis. Heart size mildly prominent. Liver and spleen are homogeneous. No gallstones. Bowel gas pattern nonspecific. Prominent perirenal l ipomatosis noted. There appears to be mild left hydronephrosis. Suggestion of mild periureteral edema in the mid ureter . Suspect a 1 mm left UVJ calculus. There is shotty pericaval lymphadenopathy. Localized narrowing of the sigmoid colon incidentally note d. There also is vague low attenuation within the intrapelvic fat of the right pelvic sidewall which is nonspecific. Hypertrophic and degenerative changes in the spine. Appendix is not visualized. Aorta de monstrates atherosclerotic change. Pancreas has a normal appearance. Small hiatal hernia noted. No ga llstones. Adrenal glands normal morphology. Spleen homogeneous. IMPRESSION- 1. Mild left hydronephrosis with mild periureteral edema with findings suspicious for a 1 to 2 mm lef t UVJ calculus. 2. Nonspecific in mild induration of the fat within the right pelvic sidewall. No adjacent bowel to s uggest involvement or etiology related to the bowel. Mesentery radius and the differential diagnosis correlate clinically. 3. Localized wall thickening and narrowing of the proximal sigmoid colon could be related on the basi s of peristalsis. Correlate with direct visualization to exclude other etiologies including mucosal l esion as clinically warranted.
[2021-12-09 09:49] LABS: Appearance,Urine Clear (Clear); Bacteria,Urine Rare /hpf; Bilirubin,Urine Negative (Negative); Blood,Urine Large (Negative); Color,Urine Light Yellow; Glucose,Urine (UA) Negative (Negative); Ketones,Urine Negative (Negative); Leukocyte Esterase,Urine Negative (Negative); Mucus,Urine Rare /hpf; Nitrite,Urine Negative (Negative); Protein,Urine 1+ (Negative); RBC,Urine 144 /hpf (0-5); Specific Gravity,Urine 1.013 (1.001-1.035); Urobilinogen,Urine <2.0 mg/dL (<2.0); WBC,Urine 1 /hpf (0-5)
[2021-12-09] MEDS ORDERED: KETOROLAC 15 MG/ML 1 ML VIAL IVP STA (10:05)
[2021-12-09 10:09] VITALS: PULSE 55
[2021-12-09 11:10] VITALS: BP 155/84
== END 2021-12-09 11:19 | disposition home or self-care (01) ==
LOC: EC 07:04
DX: N13.2 Hydronephrosis with renal and ureteral calculous obstruction (principal); E11.9 Type 2 diabetes mellitus without complications; E78.5 Hyperlipidemia, unspecified; I10 Essential (primary) hypertension; M19.90 Unspecified osteoarthritis, unspecified site; I48.91 Unspecified atrial fibrillation; Z79.899 Other long term (current) drug therapy; Z79.84 Long term (current) use of oral hypoglycemic drugs; Z79.02 Long term (current) use of antithrombotics/antiplatelets
CPT/HCPCS: 99284; 96374; 96375; 96361; 96372; 36415; 80053; 82150; 83690; 85025; 85610; 85730; 81001; 74177; J2270; J0500; J2405; J1885; Q9967

== ENCOUNTER → 2022-02-15 | Outpatient (CLI) | payer MEDICARE, OTHER ==
[2022-02-15 11:50] LABS: MCH 28.9 pg (27.0-32.0); MCHC 31.4 g/dL (32.0-37.0); MCV 92.1 fL (80.0-97.0); Mean Platelet Volume 10.8 fL (9.5-12.2); NRBC Per 100 WBC 0 /100 WBCS (0.0-0.0); Platelet Count 216 X 10*3/uL (140-440); RDW 13.6 % (11.5-14.5); WBC 9.93 X 10*3/uL (4.50-10.00)
[2022-02-15 11:54] LABS: African American GFR (CKD) 34.2 (60.0-200.0); Anion Gap 11.2 mmol/L (10.00-18.00); Carbon Dioxide 20.8 mmol/L (20.0-27.5); Non-African American GFR(CKD) 29.5 (60.0-200.0); Potassium 5.4 mmol/L (3.5-5.5)
== END | disposition home or self-care (01) ==
LOC: LABPAT 07:15
PROVIDERS: ATTEND Internal Medicine Clinical Cardiac Electrophysiology
DX: Z01.812 Encounter for preprocedural laboratory examination (principal); I25.10 Atherosclerotic heart disease of native coronary artery without angina pectoris
CPT/HCPCS: 80051; 82565; 84520; 85027

== ENCOUNTER 2022-02-25 09:29 | Day surgery (SDC) | payer MEDICARE, OTHER ==
[~2022-02-25 09:29] MED LIST changes: -ALPRAZolam 0.25 MG TAB PO PRN; -ALPRAZolam 0.5 MG TAB PO PRN; -ASPIRIN 325 MG TAB PO STA; -ATORVASTATIN 80 MG TAB PO STA; +DEXAMETHASONE SOD PHOSPHATE 4 MG/ML 1 ML VIAL IV ONE; +LIDOCAINE 1% (10MG/ML) FOR IV START INTRADERMA PRN; -NITROGLYCERIN SL TABS 0.4 MG TAB SUBLINGUAL PRN; +ONDANSETRON 4 MG/2 ML VIAL IVP ONE; +SODIUM CHLORIDE 0.9% 1,000 ML IV SCH; -SODIUM CHLORIDE 0.9% 1,000 ML in EMPTY BAG 1 BAG IV ONE; +fentaNYL (PF) 50 MCG/ML 2 ML AMP IV PRN
[2022-02-25] MEDS ORDERED: SODIUM CHLORIDE 0.9% 1,000 ML IV ONE ×2 (09:41→16:00)
[2022-02-25 09:56] LABS: Glucose,Whole Blood 133 mg/dL (70-110)
[2022-02-25] MEDS ORDERED: PROPOFOL 10 MG/ML 20 ML VIAL IV ONE (11:44)
[2022-02-25] MEDS ORDERED: ISOPROTERENOL 250 MCG/1.25 ML SYR IV ONE (11:44)
[2022-02-25] MEDS ORDERED: LIDOCAINE 2% INJ 20 MG/ML (2 ML VIAL) ONE (11:44)
[2022-02-25] MEDS ORDERED: SUCCINYLCHOLINE CHLORIDE 200 MG/10 ML VIAL IV ONE (11:44)
[2022-02-25] MEDS ORDERED: HYDROmorphone (PF) 1 MG/ML ONE (11:44)
[2022-02-25] MEDS ORDERED: HEPARIN SODIUM,PORCINE 10,000 UNIT/ML 1 ML VIAL ONE (11:44)
[2022-02-25] MEDS ORDERED: PHENYLEPHRINE-0.9% NACL SYG 1,000 MCG/10 ML SYRINGE ONE (11:44)
[2022-02-25] MEDS ORDERED: fentaNYL (PF) 50 MCG/ML 2 ML AMP ONE (11:44)
[2022-02-25] MEDS ORDERED: MIDAZOLAM 2 MG/2 ML VIAL ONE (11:44)
[2022-02-25] MEDS ORDERED: HEPARIN SOD,PORK IN 0.45% NACL 25,000 UNIT in 0.45% NACL 1 250ML.BAG IV ONE (12:06)
--- NOTE | 2022-02-25 12:11 | P.HPCAR ---
History of Present Illness This is Dr. Matos dictating an H/P on this patient The patient was interviewed and examined IMPRESSION / ASSESSMENT: Paroxysmal atrial fibrillation, symptomatic Type 2 diabetes Underlying sick sinus syndrome Failed sotalol therapy in the past CKD stage III Hypertension PLAN: Proceed with PVI Continue anticoagulation HPI Patient continues to have palpitations and paroxysmal atrial fibrillation, documented Given his chronic kidney disease sotalol had to be ultimately discontinued He denies any fever chills cough expectoration Denies any chest discomfort denies any syncope in the last few days ROS: No fever chills or rigors, no cough, phlegm or expectoration, no nausea, vomiting or diarrhea, no hematuria, dysuria, no musculoskeletal complaints, no strokes or seizures, no skin lesions. EXAMINATION: Blood pressure 198/84 mmHg, repeat 148/78 Temperature 90.9F Breath sounds are clear no rhonchi no crackles Heart sounds are normal normal S1 normal S2 no murmurs No lower extremity edema Abdomen soft REVIEW OF LABS, ECG & MEDICAL DATA glucose 133, potassium 4.7 Physical Exam Vitals: Vital Signs Temp Pulse Resp BP BP Pulse Ox 02/25/22 09:53 99.2 F 86 16 217/94 198/84 98 Intake and Output 02/24/22 02/25/22 02/25/22 22:59 06:59 14:59 Intake Total 100 Balance 100 Intake: IV 100 Other: Weight 110.3 kg Past Medical History Past Medical History: Atrial Fibrillation, Diabetes Mellitus, Hyperlipidemia, Hypertension, Osteoarthritis (OA), Renal Disease Additional Past Medical History / Comment(s): Stage 3 Kidney Disease, see Dr Matos H & P History of Any Multi-Drug Resistant Organisms: None Reported Past Surgical History: Back Surgery, Orthopedic Surgery Additional Past Surgical History / Comment(s): Left knee arthroscopy Past Anesthesia/Blood Transfusion Reactions: Motion Sickness Smoking Status: Never smoker - Past Family History Mother Family Medical History: Cancer Physical Examination Vital Signs Temp Pulse Resp BP BP Pulse Ox 02/25/22 09:53 99.2 F 86 16 217/94 198/84 98 Intake and Output 02/24/22 02/25/22 02/25/22 22:59 06:59 14:59 Intake Total 100 Balance 100 Intake: IV 100 Other: Weight 110.3 kg Results 02/25/22 09:49 Comprehensive Metabolic Panel 02/25/22 Range/Units 09:49 Potassium 4.7 (3.5-5.1) mmol/L Current Medications Generic Name Dose Route Start Last Admin Trade Name Greyson PRN Reason Stop Dose Admin Fentanyl Citrate 50 mcg 02/25/22 07:00 Fentanyl (Pf) 50 Mcg/Ml 2 Ml Amp IV 02/25/22 23:00 Q3M PRN Phase I - Pain Control Lactated Ringer's 1,000 mls @ 20 mls/hr 02/25/22 05:54 Lactated Ringers IV 03/27/22 05:55 .Q24H ALYX Lidocaine HCl 0.1 ml 02/25/22 05:54 Lidocaine 1% (10mg/Ml) For Iv Start INTRADERMA 03/27/22 05:55 PER PROTOCOL PRN IV Start Intake and Output 02/24/22 02/25/22 02/25/22 22:59 06:59 14:59 Intake Total 100 Balance 100 Intake: IV 100 Other: Weight 110.3 kg Patient Weight 02/26/22 06:59 Weight 110.3 kg 02/25/22 09:49
[2022-02-25] MEDS ORDERED: LIDOCAINE 1% INJ 10MG/ML (30 ML VIAL-PF) SQ ONE (12:17)
[2022-02-25] MEDS ORDERED: IOPAMIDOL-370 100ML BTL INJ ONE ×2 (13:10)
[2022-02-25] MEDS ORDERED: ACETAMINOPHEN TAB 325 MG TAB PO PRN (14:36)
--- NOTE | 2022-02-25 14:58 | P.EPPROC ---
- EP Procedure Note Electrophysiology Procedure Note: PROCEDURE A. fib ablation DIAGNOSIS Atrial fibrillation, symptomatic, refractory to therapy RESULT No left atrial appendage mass seen on intracardiac echo Successful A. fib ablation/pulmonary vein isolation of all veins using cryo- ablation Complete entrance block in all 4 veins confirmed No evidence for phrenic nerve injury Esophageal deflection YES / NO Electrical cardioversion with a synchronized shock across the chest YES / NO PROCEDURE DETAILS Patient was brought to the EP lab in a fasting state after obtaining written informed consent. Procedure performed under general anesthesia Esophagus was intubated. Esophageal temperature monitoring with circa catheter. Esophageal deflection with an endoscope to avoid hypothermia of the esophagus. After initial muscle relaxant use, muscle relaxants were not given thereafter in order to assess phrenic nerve during procedure. Patient prepped and draped as per protocol Cryo ablation-set up with standard preparation of the cryoablation tools done. Femoral Venous access obtained on the right and left groins and sheaths placed Diagnostic catheters for the high right atrium, phrenic nerve stimulation and pacing, His bundle, coronary sinus placed Intracardiac echo catheter placed. Long sheath placed in the right atrium Left and right transseptal catheterization performed under intracardiac echo guidance. Intravenous heparin with aCT above 300 Later, catheter positioning and balloon positioning in the left atrium and p ulmonary veins, under intracardiac echo guidance Diagnostic EP study with coronary sinus pacing and recording Baseline measurements: Sinus cycle length 859 ms, W[place] interval 178 ms, QRS 76 ms and QT 376 ms AH 108, HV 48 Sinus recovery times a 600, 504 100 ms were 1498, 1350 and 1498 ms AV node Wenckebach block 420 ms Parahisian pacing revealed rachid response Transseptal catheterization performed RA pressure 15/10 LA pressure 21/6/14 Transseptal catheterization performed with standard sheath. The cryoablation sheath was then placed with an over the wire exchange without any acute complications. The cryoablation balloon was placed in the office of each pulmonary vein and all 4 pulmonary veins were isolated. IV dye was injected to confirm occlusion. Goal: achieve complete occlusion of the pulmonary vein, achieve -30 degrees C at 30 seconds and achieve -40 degrees C at 60 seconds and a time to effect of less than 60 seconds. If not, the balloon was repositioned to obtain this result After completion of Cryoblation with durations from 180-240 seconds, entrance block was confirmed with the Attain circular catheter in a roving fashion around the antrum of the pulmonary veins Phrenic nerve pacing was performed from the SVC, right innominate vein area and diaphragm voltage was monitored. Diaphragmatic contractions were also monitored manually for strength of contraction. At the end of the procedure the Achieve catheter was once again used to check for entrance block Phrenic nerve stimulation was performed to confirm diaphragmatic stimulation the end of the procedure Cine fluoroscopy was performed at the very end of the procedure to confirm movement of both diaphragms with inspiration and expiration At the end of the procedure the patient was extubated Venous sheaths were removed and hemostasis assured with a closure device PROCEDURES PERFORMED Diagnostic EP study CS pacing and recording Left and right transseptal catheterization Catheter the mapping of the tachycardia Intracardiac echocardiography Pulmonary vein isolation with transseptal and comprehensive EPS, [id number] Drug infusion, +[id number]
[2022-02-25] MEDS ORDERED: ACETAMINOPHEN IV (For NPO) 1,000 MG in EMPTY BAG 1 BAG IVPB ONE (15:00)
[2022-02-25] MEDS: LACTATED RINGERS 1,000 ML IV SCH (17:00)
[2022-02-25] MEDS: metFORMIN 500 MG TAB PO SCH (21:12)
[2022-02-25] MEDS: METOPROLOL TARTRATE 50 MG TAB PO SCH (21:12)
[2022-02-26] MEDS: LACTATED RINGERS 1,000 ML IV SCH (04:05)
--- NOTE | 2022-02-26 04:47 | P.DS ---
Providers Attending physician: Chandra Matos Primary care physician: Shandra Miller MD Hospital Course: Patient is sitting comfortably in a chair No chest discomfort dizziness lightheadedness No groin pain On examination he is afebrile 98.5F, blood pressure 143/76. Normal heart sounds regular Breath sounds are clear Groins of healed well no hematoma Impression Paroxysmal symptomatic atrial fibrillation Status post pulmonary vein isolation Type 2 diabetes Chronic kidney disease Suggest Increase lisinopril to 20 mg by mouth daily Stop hydrochlorothiazide Maximize antihypertensive therapy Continue diabetes management, add SGLT 2 inhibitors Discharge home at 10 AM if hemodynamically stable and no hematoma in the groins and ambulating around in the hallways Follow-up with Dr. matthews in 1 week Plan - Discharge Summary Discharge Rx Participant: Yes New Discharge Prescriptions: Continue metFORMIN HCL [Glucophage] 1,000 mg PO BID Insulin NPH Hum/Reg Insulin Hm [NovoLIN 70-30 100 UNIT/ML VIAL] 65 unit SQ BID Metoprolol Tartrate [Lopressor] 100 mg PO BID Rivaroxaban [Xarelto] 20 mg PO DAILY Nitroglycerin Sl Tabs [Nitrostat] 0.4 mg SUBLINGUAL Q5M PRN #25 tab PRN Reason: Chest Pain Clopidogrel [Plavix] 75 mg PO DAILY lisinopriL [Zestril] 10 mg PO DAILY hydroCHLOROthiazide [Hydrodiuril] 25 mg PO DAILY Cyanocobalamin (Vitamin B-12) [Vitamin B-12] 1,000 mcg PO DAILY Rosuvastatin Calcium [Crestor] 40 mg PO DAILY Ferrous Sulfate [Iron (65 MG Elemental)] 325 mg PO Q2D Discharge Medication List Insulin NPH Hum/Reg Insulin Hm [NovoLIN 70-30 100 UNIT/ML VIAL] 65 unit SQ BID 12/11/14 [History] Metoprolol Tartrate [Lopressor] 100 mg PO BID 12/11/14 [History] metFORMIN HCL [Glucophage] 1,000 mg PO BID 12/11/14 [History] Rivaroxaban [Xarelto] 20 mg PO DAILY 09/08/18 [History] Nitroglycerin Sl Tabs [Nitrostat] 0.4 mg SUBLINGUAL Q5M PRN #25 tab 01/12/20 [Rx] Clopidogrel [Plavix] 75 mg PO DAILY 02/24/22 [History] Cyanocobalamin (Vitamin B-12) [Vitamin B-12] 1,000 mcg PO DAILY 02/24/22 [History] Ferrous Sulfate [Iron (65 MG Elemental)] 325 mg PO Q2D 02/24/22 [History] Rosuvastatin Calcium [Crestor] 40 mg PO DAILY 02/24/22 [History] hydroCHLOROthiazide [Hydrodiuril] 25 mg PO DAILY 02/24/22 [History] lisinopriL [Zestril] 10 mg PO DAILY 02/24/22 [History] Follow up Appointment(s)/Referral(s): Chandra Matos MD [STAFF PHYSICIAN] - 1 Week (Follow-up with Yola Zaman in 1 week) Activity/Diet/Wound Care/Special Instructions: Post EP study - Ablation instructions 1. Keep access sites dry for 2 days. 2. No heavy lifting or straining for 2 days. 3. Avoid bending the hips repeatedly for 2 days. 4. You may go up and down stairs slowly Call if the following is noted 1. Bleeding, increasing swelling or pain at the access sites. 2. Increasing chest discomfort, especially upon taking a deep breath. 3. Increasing shortness of breath, at rest or with exertion. 4. Undue cough / phlegm 5. Difficulty or pain while swallowing. 6. Pain or change in color in the extremities. 7. Fever, chills, rigors. 8. Increasing headache or neurologic symptoms. 9. Dizziness, fainting, palpitations Discharge Disposition: HOME SELF-CARE
[2022-02-26 07:52] VITALS: BP 114/65; PULSE 66; RESP 14; TEMP 97.8
[2022-02-26] MEDS: metFORMIN 500 MG TAB PO SCH (08:24)
[2022-02-26] MEDS: METOPROLOL TARTRATE 50 MG TAB PO SCH (08:24)
[2022-02-26] MEDS ORDERED: lisinopriL 10 MG TAB PO SCH (09:00)
[2022-02-26] MEDS ORDERED: CLOPIDOGREL 75 MG TAB PO SCH (09:00)
[2022-02-26] MEDS ORDERED: RIVAROXABAN 20 MG TAB PO SCH (09:00)
[2022-02-26] MEDS ORDERED: ATORVASTATIN 80 MG TAB PO SCH (09:00)
[2022-02-26 10:43] LABS: African American GFR (CKD) 34.2 (60.0-200.0); Anion Gap 11.7 mmol/L (10.00-18.00); BUN/Creat Ratio 15.36 Ratio (12.00-20.00); Blood Urea Nitrogen 33.8 mg/dL (9.0-27.0); Carbon Dioxide 19.3 mmol/L (20.0-27.5); Non-African American GFR(CKD) 29.5 (60.0-200.0); Potassium 5.1 mmol/L (3.5-5.5)
== END 2022-02-26 10:20 | disposition home or self-care (01) ==
LOC: CATHEP 09:29 → 6NMEDSUR 14:18 → CATHEP 02-26 10:20
PROVIDERS: ATTEND Internal Medicine Clinical Cardiac Electrophysiology
DX: I48.0 Paroxysmal atrial fibrillation (principal); I12.9 Hypertensive chronic kidney disease with stage 1 through stage 4 chronic kidney disease, or unspecified chronic kidney disease; E11.22 Type 2 diabetes mellitus with diabetic chronic kidney disease; N18.32 Chronic kidney disease, stage 3b; E78.5 Hyperlipidemia, unspecified; M19.90 Unspecified osteoarthritis, unspecified site; Z20.822 Contact with and (suspected) exposure to COVID-19; Z80.9 Family history of malignant neoplasm, unspecified; I25.10 Atherosclerotic heart disease of native coronary artery without angina pectoris; Z72.0 Tobacco use; Z79.01 Long term (current) use of anticoagulants; Z79.84 Long term (current) use of oral hypoglycemic drugs; Z79.02 Long term (current) use of antithrombotics/antiplatelets; Z79.899 Other long term (current) drug therapy
CPT/HCPCS: 93656; 80048; 84132; 87635; C1894 ×2; C1769 ×4; C1760; C1730 ×2; C1759; C1893; C1733; C1766; J2250; J0330; J1644 ×2; J2001 ×2; J3010; J1170; J2370; J2704; Q9967; 93609; 93662

== ENCOUNTER 2022-09-15 17:30 | Emergency (ER) | payer MEDICARE, OTHER ==
[2022-09-15 17:44] VITALS: TEMP 98.1
[2022-09-15 18:15] LABS: Basophils % (A) 0 %; Eosinophils # (A) 0.2 k/uL (0-0.7); Eosinophils % (A) 3 %; HCT 31.9 % (39.0-53.0); HGB 10.6 gm/dL (13.0-17.5); Lymphocytes # (A) 2.8 k/uL (1.0-4.8); Lymphocytes % (A) 33 %; MCHC 33.4 g/dL (31.0-37.0); MCV 89.9 fL (80.0-100.0); Mean Platelet Volume 7.7; Monocytes # (A) 0.6 k/uL (0-1.0); Monocytes % (A) 7 %; Neutrophils # (A) 4.7 k/uL (1.3-7.7); Neutrophils % (A) 55 %; Platelet Count 173 k/uL (150-450); RBC 3.54 m/uL (4.30-5.90); RDW 13.4 % (11.5-15.5); WBC 8.6 k/uL (3.8-10.6)
[2022-09-15 18:25] LABS: Albumin 4.1 g/dL (3.5-5.0); Calcium 9.1 mg/dL (8.4-10.2); Potassium 5.3 mmol/L (3.5-5.1); Total Bilirubin 0.5 mg/dL (0.2-1.3); Total Protein 7.1 g/dL (6.3-8.2)
--- NOTE | 2022-09-15 19:42 | ED ---
General Adult HPI - General Chief complaint: Recheck/Abnormal Lab/Rx Stated complaint: abnormal labs Time Seen by Provider: 09/15/22 19:24 Source: patient Mode of arrival: ambulatory Limitations: no limitations - History of Present Illness Initial comments: Patient is a 71-year-old male who presents to the emergency department for abnormal labs. Patient had an annual checkup with his primary care provider yesterday. He was called today stating his potassium was 6.1 he was directed to go to the emergency department. Patient states he has had history of hyperkalemia in the past usually as high as 5.5. He does have stage 3 chronic kidney disease. Patient feels well he has no complaints. He denies fever, chills, fatigue, muscle aches, weakness, chest pain, palpitations, shortness of breath, nausea, vomiting. Patient has never been evaluated by a couture dressmaker.He denies use of any ADRYAN inhibitors, ARBs. NSAIDs - Related Data Home Medications Medication Instructions Recorded Confirmed Insulin NPH Hum/Reg Insulin Hm 65 unit SQ BID 12/11/14 02/25/22 [NovoLIN 70-30 100 UNIT/ML VIAL] Metoprolol Tartrate [Lopressor] 100 mg PO BID 12/11/14 02/25/22 metFORMIN HCL [Glucophage] 1,000 mg PO BID 12/11/14 02/24/22 Rivaroxaban [Xarelto] 20 mg PO DAILY 09/08/18 02/25/22 Clopidogrel [Plavix] 75 mg PO DAILY 02/24/22 02/24/22 Cyanocobalamin (Vitamin B-12) 1,000 mcg PO DAILY 02/24/22 02/24/22 [Vitamin B-12] Ferrous Sulfate [Iron (65 MG 325 mg PO Q2D 02/24/22 02/24/22 Elemental)] Rosuvastatin Calcium [Crestor] 40 mg PO DAILY 02/24/22 02/24/22 hydroCHLOROthiazide [Hydrodiuril] 25 mg PO DAILY 02/24/22 02/24/22 lisinopriL [Zestril] 10 mg PO DAILY 02/24/22 02/24/22 Previous Rx's Medication Instructions Recorded Nitroglycerin Sl Tabs [Nitrostat] 0.4 mg SUBLINGUAL Q5M PRN #25 tab 01/12/20 Allergies Allergy/AdvReac Type Severity Reaction Status Date / Time No Known Allergies Allergy Verified 09/15/22 17:43 Review of Systems ROS Statement: Those systems with pertinent positive or pertinent negative responses have been documented in the HPI. ROS Other: All systems not noted in ROS Statement are negative. Past Medical History Past Medical History: Atrial Fibrillation, Diabetes Mellitus, Hyperlipidemia, Hypertension, Osteoarthritis (OA), Renal Disease Additional Past Medical History / Comment(s): Stage 3 Kidney Disease. History of Any Multi-Drug Resistant Organisms: None Reported Past Surgical History: Back Surgery, Orthopedic Surgery Additional Past Surgical History / Comment(s): Left knee surgery. Past Anesthesia/Blood Transfusion Reactions: Motion Sickness Past Psychological History: No Psychological Hx Reported Smoking Status: Never smoker Past Alcohol Use History: None Reported Past Drug Use History: None Reported - Past Family History Mother Family Medical History: Cancer General Exam Limitations: no limitations General appearance: alert, in no apparent distress Respiratory exam: Present: normal lung sounds bilaterally. Absent: respiratory distress, wheezes, rales, rhonchi, stridor Cardiovascular Exam: Present: regular rate, normal rhythm, normal heart sounds. Absent: systolic murmur, diastolic murmur, rubs, gallop, clicks GI/Abdominal exam: Present: soft, normal bowel sounds. Absent: distended, tenderness, guarding, rebound, rigid Neurological exam: Present: alert, oriented X3, CN II-XII intact Psychiatric exam: Present: normal affect, normal mood Skin exam: Present: warm, dry, intact, normal color. Absent: rash Course Vital Signs 09/15/22 09/15/22 09/15/22 17:40 20:15 20:36 Temperature 98.1 F Pulse Rate 60 70 Respiratory 20 20 14 Rate Blood Pressure 170/75 191/100 O2 Sat by Pulse 99 98 96 Oximetry Medical Decision Making - Medical Decision Making Was pt. sent in by a medical professional or institution (, PA, ARBOREAL SCIENTIST, urgent care, hospital, or assisted...) When possible be specific @ -No Did you speak to anyone other than the patient for history (EMS, parent, family, police, friend...)? What history was obtained from this source @ -No Did you review nursing and triage notes (agree or disagree)? Why? @ -I reviewed and agree with nursing and triage notes Were old charts reviewed (outside hosp., previous admission, EMS record, old EKG, old radiological studies, urgent care reports/EKG's, assisted records)? Report findings @ -No old charts were reviewed Differential Diagnosis (chest pain, altered mental status, abdominal pain women, abdominal pain men, vaginal bleeding, weakness, fever, dyspnea, syncope, headache, dizziness, GI bleed, back pain, seizure, CVA, palpatations, mental health)? @ -NA EKG interpreted by me (3pts min.). @ -As above X-rays interpreted by me (1pt min.). @ -None done CT interpreted by me (1pt min.). @ -None done U/S interpreted by me (1pt. min.). @ -None done What testing was considered but not performed or refused? (CT, X-rays, U/S, l abs)? Why? @ -None What meds were considered but not given or refused? Why? @ -None Did you discuss the management of the patient with other professionals (professionals i.e. , PA, ARBOREAL SCIENTIST, lab, RT, psych nurse, social services analyst, finisher special stocks, teacher, radio division officer, case fitter)? Give summary @ -No Was smoking cessation discussed for >3mins.? @ -No Was critical care preformed (if so, how long)? @ -No Were there social determinants of health that impacted care today? How? (Homelessness, low income, unemployed, alcoholism, drug addiction, transportation, low edu. Level, literacy, decrease access to med. care, correction, rehab)? @ -No Was there de-escalation of care discussed even if they declined (Discuss DNR or withdrawal of care, Hospice)? DNR status @ -No] What co-morbidities impacted this encounter? (DM, HTN, Smoking, COPD, CAD, Canc er, CVA, ARF, Chemo, Hep., AIDS, mental health diagnosis, sleep apnea, morbid obesity)? @ -[None] Was patient admitted / discharged? Hospital course, mention meds given and route, prescriptions, significant lab abnormalities, going to OR and other pertinent info. @ -Patient presenting for hyperkalemia. He is asymptomatic feels well. Labor atory studies obtained. Potassium is 5.3. Kidney function consisted with CKD. Acute treatment in the emergency department is not indicated at this time. Patient will follow up with his primary care provider for repeat labs. He is also referred to a couture dressmaker today for further evaluation and management of his chronic kidney disease. Undiagnosed new problem with uncertain prognosis? @ -[No] Drug Therapy requiring intensive monitoring for toxicity (Heparin, Nitro, Insulin, Cardizem)? @ -[No] Were any procedures done? @ -[No] Diagnosis/symptom? @ -hyperkalemia Acute, or Chronic, or Acute on Chronic? @ -acute Uncomplicated (without systemic symptoms) or Complicated (systemic symptoms)? @ -uncomplicated Side effects of treatment? @ -[No] Exacerbation, Progression, or Severe Exacerbation? @ -[No] Poses a threat to life or bodily function? How? (Chest pain, [place], [place], pneumonia, PE, COPD, DKA, ARF, appy, cholecystitis, CVA, Diverticulitis, Homicidal, Suicidal, threat to staff... and all critical care pts) @ -Not currently Dr. Francis is my attending - Lab Data Result diagrams: 09/15/22 17:45 09/15/22 17:45 Lab Results 09/15/22 09/15/22 Range/Units 17:45 17:45 WBC 8.6 (3.8-10.6) k/uL RBC 3.54 L (4.30-5.90) m/uL Hgb 10.6 L (13.0-17.5) gm/dL Hct 31.9 L (39.0-53.0) % MCV 89.9 (80.0-100.0) fL MCH 30.0 (25.0-35.0) pg MCHC 33.4 (31.0-37.0) g/dL RDW 13.4 (11.5-15.5) % Plt Count 173 (150-450) k/uL MPV 7.7 Neutrophils % 55 % Lymphocytes % 33 % Monocytes % 7 % Eosinophils % 3 % Basophils % 0 % Neutrophils # 4.7 (1.3-7.7) k/uL Lymphocytes # 2.8 (1.0-4.8) k/uL Monocytes # 0.6 (0-1.0) k/uL Eosinophils # 0.2 (0-0.7) k/uL Basophils # 0.0 (0-0.2) k/uL Sodium 140 (137-145) mmol/L Potassium 5.3 H (3.5-5.1) mmol/L Chloride 112 H (98-107) mmol/L Carbon Dioxide 17 L (22-30) mmol/L Anion Gap 11 mmol/L BUN 49 H (9-20) mg/dL Creatinine 2.62 H (0.66-1.25) mg/dL Est GFR (CKD-EPI)AfAm 28 (>60 ml/min/1.73 sqM) Est GFR (CKD-EPI)NonAf 24 (>60 ml/min/1.73 sqM) Glucose 149 H (74-99) mg/dL Calcium 9.1 (8.4-10.2) mg/dL Total Bilirubin 0.5 (0.2-1.3) mg/dL AST 21 (17-59) U/L ALT 29 (4-49) U/L Alkaline Phosphatase 60 (38-126) U/L Total Protein 7.1 (6.3-8.2) g/dL Albumin 4.1 (3.5-5.0) g/dL Disposition Clinical Impression: Hyperkalemia Disposition: HOME SELF-CARE Condition: Good Instructions (If sedation given, give patient instructions): Hyperkalemia (ED) Additional Instructions: Follow up with couture dressmaker and primary care provider in 1-2 days. Return to the ED if you experience new, worsening, concerning symptoms. Is patient prescribed a controlled substance at d/c from ED?: No Referrals: Wale Moncada MD [Primary Care Provider] - 1-2 days Vern Lucas DO [STAFF PHYSICIAN] - 1-2 days
[2022-09-15 20:37] VITALS: BP 191/100; PULSE 70; RESP 14
== END 2022-09-15 20:36 | disposition home or self-care (01) ==
LOC: EC 17:30
DX: E87.5 Hyperkalemia (principal); E11.22 Type 2 diabetes mellitus with diabetic chronic kidney disease; I12.9 Hypertensive chronic kidney disease with stage 1 through stage 4 chronic kidney disease, or unspecified chronic kidney disease; N18.30 Chronic kidney disease, stage 3 unspecified; I48.91 Unspecified atrial fibrillation; M19.90 Unspecified osteoarthritis, unspecified site; Z79.4 Long term (current) use of insulin; Z79.84 Long term (current) use of oral hypoglycemic drugs; Z79.01 Long term (current) use of anticoagulants; Z79.02 Long term (current) use of antithrombotics/antiplatelets; Z79.899 Other long term (current) drug therapy
CPT/HCPCS: 36415; 80053; 85025; 99284

== ENCOUNTER → 2022-09-30 | Outpatient (CLI) | payer MEDICARE, OTHER ==
--- NOTE | 2022-09-30 14:16 | US ---
EXAMINATION TYPE: US kidneys/renal and bladder DATE OF EXAM: 09/30/2022 COMPARISON: CT abdomen and pelvis December 09, 2021 CLINICAL INDICATION: Male, 71 years old with history of N18.32 STAGE 3 CHR KIDNEY DISEASE; CKD 3 EXAM MEASUREMENTS: Right Kidney: 11.7 x 6.0 x 4.5 cm Left Kidney: 12.1 x 4.8 x 3.4 cm Right Kidney: No hydronephrosis seen echogenic area seen lower pole. Left Kidney: No hydronephrosis or masses seen Bladder: anechoic Bilateral Jets seen: no There is no evidence for hydronephrosis at this point in time. Tiny calculus right kidney on prior CT less well seen on plain films. Perinephric fluid on the left is seen. No masses are identified. Th e urinary bladder is adequately distended. Bilateral ureteral jets are not seen. IMPRESSION: No hydronephrosis is seen bilaterally.
== END | disposition home or self-care (01) ==
LOC: RADUSWWP 12:00
PROVIDERS: ATTEND Family Medicine
DX: N18.32 Chronic kidney disease, stage 3b (principal)
CPT/HCPCS: 76770

== ENCOUNTER 2022-10-16 05:59 | Emergency (ER) | payer MEDICARE, OTHER ==
[2022-10-16 06:15] VITALS: TEMP 98.3
[2022-10-16] MEDS ORDERED: SODIUM CHLORIDE 0.9% 1,000 ML IV STA (06:21)
[2022-10-16] MEDS ORDERED: ONDANSETRON 4 MG/2 ML VIAL IVP STA (06:28)
[2022-10-16] MEDS ORDERED: HYDROmorphone 0.5 MG/0.5 ML SYRINGE IVP STA (06:28)
[2022-10-16] MEDS ORDERED: KETOROLAC 15 MG/ML 1 ML VIAL IVP STA (06:28)
--- NOTE | 2022-10-16 06:30 | ED ---
Abdominal Pain HPI - General Chief Complaint: Abdominal Pain Stated Complaint: Kidney Stones Time Seen by Provider: 10/16/22 06:20 Source: patient, RN notes reviewed Mode of arrival: ambulatory Limitations: no limitations - History of Present Illness Initial Comments: This is a 71-year-old male presents emergency Department chief complaint left flank pain. Patient states started last night worsened throughout the night. Patient does admit to nausea and vomiting. He has history kidney stones and feels exactly same as she's had in the past. Patient denies any history of diverticulitis no dysuria no hematuria noted. Patient reports no fevers or chills nothing makes pain feel better or worse and NO KNOWN DRUG ALLERGIES. - Related Data Home Medications Medication Instructions Recorded Confirmed Insulin NPH Hum/Reg Insulin Hm 65 unit SQ BID 12/11/14 02/25/22 [NovoLIN 70-30 100 UNIT/ML VIAL] Metoprolol Tartrate [Lopressor] 100 mg PO BID 12/11/14 02/25/22 metFORMIN HCL [Glucophage] 1,000 mg PO BID 12/11/14 02/24/22 Rivaroxaban [Xarelto] 20 mg PO DAILY 09/08/18 02/25/22 Clopidogrel [Plavix] 75 mg PO DAILY 02/24/22 02/24/22 Cyanocobalamin (Vitamin B-12) 1,000 mcg PO DAILY 02/24/22 02/24/22 [Vitamin B-12] Ferrous Sulfate [Iron (65 MG 325 mg PO Q2D 02/24/22 02/24/22 Elemental)] Rosuvastatin Calcium [Crestor] 40 mg PO DAILY 02/24/22 02/24/22 hydroCHLOROthiazide [Hydrodiuril] 25 mg PO DAILY 02/24/22 02/24/22 lisinopriL [Zestril] 10 mg PO DAILY 02/24/22 02/24/22 Previous Rx's Medication Instructions Recorded Nitroglycerin Sl Tabs [Nitrostat] 0.4 mg SUBLINGUAL Q5M PRN #25 tab 01/12/20 Ondansetron Odt [Zofran Odt] 4 mg PO Q8HR PRN #10 tab 10/16/22 Tamsulosin [Flomax] 0.4 mg PO DAILY #7 cap 10/16/22 Allergies Allergy/AdvReac Type Severity Reaction Status Date / Time No Known Allergies Allergy Verified 10/16/22 06:12 Review of Systems ROS Statement: Those systems with pertinent positive or pertinent negative responses have been documented in the HPI. ROS Other: All systems not noted in ROS Statement are negative. Past Medical History Past Medical History: Atrial Fibrillation, Diabetes Mellitus, Hyperlipidemia, Hypertension, Osteoarthritis (OA), Renal Disease Additional Past Medical History / Comment(s): Stage 3 Kidney Disease. History of Any Multi-Drug Resistant Organisms: None Reported Past Surgical History: Back Surgery, Orthopedic Surgery Additional Past Surgical History / Comment(s): Left knee surgery. Past Anesthesia/Blood Transfusion Reactions: Motion Sickness Past Psychological History: No Psychological Hx Reported Smoking Status: Never smoker Past Alcohol Use History: None Reported Past Drug Use History: None Reported - Past Family History Mother Family Medical History: Cancer General Exam Limitations: no limitations General appearance: alert, in no apparent distress Head exam: Present: atraumatic, normocephalic, normal inspection Eye exam: Present: normal appearance, PERRL, EOMI. Absent: scleral icterus, conjunctival injection, periorbital swelling ENT exam: Present: normal exam, mucous membranes moist Neck exam: Present: normal inspection. Absent: tenderness, meningismus, lymphadenopathy Respiratory exam: Present: normal lung sounds bilaterally. Absent: respiratory distress, wheezes, rales, rhonchi, stridor Cardiovascular Exam: Present: regular rate, normal rhythm, normal heart sounds. Absent: systolic murmur, diastolic murmur, rubs, gallop, clicks GI/Abdominal exam: Present: soft, tenderness (Minimal left), normal bowel sounds. Absent: distended, guarding, rebound, rigid Back exam: Present: CVA tenderness (R), CVA tenderness (L) Neurological exam: Present: alert Skin exam: Present: warm, dry, intact, normal color. Absent: rash Course Vital Signs 10/16/22 10/16/22 06:12 07:49 Temperature 98.3 F Pulse Rate 58 L 54 L Respiratory 18 16 Rate Blood Pressure 129/62 143/87 O2 Sat by Pulse 98 99 Oximetry Medical Decision Making - Medical Decision Making Was pt. sent in by a medical professional or institution (, PA, HRIS DEVELOPER, urgent care, hospital, or fpc...) When possible be specific @ -No Did you speak to anyone other than the patient for history (EMS, parent, family, police, friend...)? What history was obtained from this source @ -No Did you review nursing and triage notes (agree or disagree)? Why? @ -I reviewed and agree with nursing and triage notes Were old charts reviewed (outside hosp., previous admission, EMS record, old EKG, old radiological studies, urgent care reports/EKG's, fpc records)? Report findings @ -No old charts were reviewed Differential Diagnosis (chest pain, altered mental status, abdominal pain women, abdominal pain men, vaginal bleeding, weakness, fever, dyspnea, syncope, headache, dizziness, GI bleed, back pain, seizure, CVA, palpatations, mental health, musculoskeletal)? @ -nDifferential Abdominal Pain Men: Appendicitis, cholecystitis, diverticulosis, ischemic bowel, pancreatitis, hepatitis, UTI, gastroenteritis, AAA, incarcerated hernia, bowel obstruction, constipation, inflammatory bowel, hepatitis, peptic ulcer disease, splenic infarction, perforated viscus, testicular torsion, this is not meant to be an all-inclusive listable EKG interpreted by me (3pts min.). @ -None X-rays interpreted by me (1pt min.). @ -X-ray KUB shows no obvious stone, non-obstructive bowel pattern CT interpreted by me (1pt min.). @ -None done U/S interpreted by me (1pt. min.). @ -None done What testing was considered but not performed or refused? (CT, X-rays, U/S, labs)? Why? @ -None What meds were considered but not given or refused? Why? @ -None Did you discuss the management of the patient with other professionals (professionals i.e. , PA, HRIS DEVELOPER, lab, RT, psych nurse, social science professor, thread checker, teacher, earth science technical officer, case reviewer)? Give summary @ -No Was smoking cessation discussed for >3mins.? @ -No Was critical care preformed (if so, how long)? @ -No Were there social determinants of health that impacted care today? How? (Homelessness, low income, unemployed, alcoholism, drug addiction, transportation, low edu. Level, literacy, decrease access to med. care, snf, rehab)? @ -No Was there de-escalation of care discussed even if they declined (Discuss DNR or withdrawal of care, Hospice)? DNR status @ -No What co-morbidities impacted this encounter? (DM, HTN, Smoking, COPD, CAD, Cancer, CVA, ARF, Chemo, Hep., AIDS, mental health diagnosis, sleep apnea, morbid obesity)? @ -Chronic renal failure Was patient admitted / discharged? Hospital course, mention meds given and route, prescriptions, significant lab abnormalities, going to OR and other pertinent info. @ -Discharged patient's symptoms are consistent with prior kidney stones patient does have noted hematuria on urinalysis. Patient's pain is improved. Patient is afebrile be discharged in stable condition with close follow-up return parameters were discussed. Undiagnosed new problem with uncertain prognosis? @ -No Drug Therapy requiring intensive monitoring for toxicity (Heparin, Nitro, Insulin, Cardizem)? @ -No Were any procedures done? @ -No Diagnosis/symptom? @ -Kidney stone, hematuria Acute, or Chronic, or Acute on Chronic? @ -Acute Uncomplicated (without systemic symptoms) or Complicated (systemic symptoms)? @ -Uncomplicated Side effects of treatment? @ -No Exacerbation, Progression, or Severe Exacerbation? @ -No Poses a threat to life or bodily function? How? (Chest pain, [place], [place], pneumonia, PE, COPD, DKA, ARF, appy, cholecystitis, CVA, Diverticulitis, Homicidal, Suicidal, threat to staff... and all critical care pts) @ -No - Lab Data Result diagrams: 10/16/22 06:30 10/16/22 06:30 Lab Results 10/16/22 10/16/22 10/16/22 Range/Units 06:30 06:30 08:23 WBC 13.9 H (3.8-10.6) k/uL RBC 3.33 L (4.30-5.90) m/uL Hgb 9.9 L (13.0-17.5) gm/dL Hct 29.8 L (39.0-53.0) % MCV 89.5 (80.0-100.0) fL MCH 29.8 (25.0-35.0) pg MCHC 33.3 (31.0-37.0) g/dL RDW 13.6 (11.5-15.5) % Plt Count 186 (150-450) k/uL MPV 7.4 Neutrophils % 81 % Lymphocytes % 13 % Monocytes % 4 % Eosinophils % 1 % Basophils % 0 % Neutrophils # 11.2 H (1.3-7.7) k/uL Lymphocytes # 1.8 (1.0-4.8) k/uL Monocytes # 0.6 (0-1.0) k/uL Eosinophils # 0.2 (0-0.7) k/uL Basophils # 0.0 (0-0.2) k/uL Sodium 140 (137-145) mmol/L Potassium 5.4 H (3.5-5.1) mmol/L Chloride 111 H (98-107) mmol/L Carbon Dioxide 19 L (22-30) mmol/L Anion Gap 10 mmol/L BUN 46 H (9-20) mg/dL Creatinine 2.67 H (0.66-1.25) mg/dL Est GFR (CKD-EPI)AfAm 27 (>60 ml/min/1.73 sqM) Est GFR (CKD-EPI)NonAf 23 (>60 ml/min/1.73 sqM) Glucose 163 H (74-99) mg/dL Calcium 9.1 (8.4-10.2) mg/dL Total Bilirubin 0.4 (0.2-1.3) mg/dL AST 22 (17-59) U/L ALT 30 (4-49) U/L Alkaline Phosphatase 56 (38-126) U/L Total Protein 6.9 (6.3-8.2) g/dL Albumin 4.0 (3.5-5.0) g/dL Lipase 115 (23-300) U/L Urine Color Yellow Urine Appearance Clear (Clear) Urine pH 5.0 (5.0-8.0) Ur Specific Snyder 1.016 (1.001-1.035) Urine Protein 1+ H (Negative) Urine Glucose (UA) Negative (Negative) Urine Ketones Negative (Negative) Urine Blood Trace H (Negative) Urine Nitrite Negative (Negative) Urine Bilirubin Negative (Negative) Urine Urobilinogen <2.0 (<2.0) mg/dL Ur Leukocyte Esterase Negative (Negative) Urine RBC 8 H (0-5) /hpf Urine WBC 1 (0-5) /hpf Urine Mucus Rare H (None) /hpf - EKG Data -: EKG Interpreted by Nv EKG Comments: test test Disposition Clinical Impression: Kidney stone on left side Disposition: HOME SELF-CARE Condition: Stable Instructions (If sedation given, give patient instructions): Kidney Stones (ED) Additional Instructions: Please return to the Emergency Department if symptoms worsen or any other concerns. Prescriptions: Tamsulosin [Flomax] 0.4 mg PO DAILY #7 cap Ondansetron Odt [Zofran Odt] 4 mg PO Q8HR PRN #10 tab PRN Reason: Nausea Is patient prescribed a controlled substance at d/c from ED?: No Referrals: Wale Moncada MD [Primary Care Provider] - 1-2 days Time of Disposition: 08:23
[2022-10-16 07:05] LABS: Basophils % (A) 0 %; Eosinophils # (A) 0.2 k/uL (0-0.7); Eosinophils % (A) 1 %; HCT 29.8 % (39.0-53.0); HGB 9.9 gm/dL (13.0-17.5); Lymphocytes # (A) 1.8 k/uL (1.0-4.8); Lymphocytes % (A) 13 %; MCH 29.8 pg (25.0-35.0); MCHC 33.3 g/dL (31.0-37.0); MCV 89.5 fL (80.0-100.0); Mean Platelet Volume 7.4; Monocytes # (A) 0.6 k/uL (0-1.0); Monocytes % (A) 4 %; Neutrophils # (A) 11.2 k/uL (1.3-7.7); Neutrophils % (A) 81 %; Platelet Count 186 k/uL (150-450); RBC 3.33 m/uL (4.30-5.90); RDW 13.6 % (11.5-15.5); WBC 13.9 k/uL (3.8-10.6)
[2022-10-16 07:21] LABS: Calcium 9.1 mg/dL (8.4-10.2); Potassium 5.4 mmol/L (3.5-5.1); Total Bilirubin 0.4 mg/dL (0.2-1.3); Total Protein 6.9 g/dL (6.3-8.2)
--- NOTE | 2022-10-16 07:32 | XR ---
EXAMINATION TYPE: XR KUB DATE OF EXAM: 10/16/2022 7:18 AM CLINICAL HISTORY: Abdominal pain. Left lower quadrant pain. TECHNIQUE: Two Upright KUB images of the abdomen are obtained. COMPARISON: CT abdomen pelvis December 09, 2021. FINDINGS: Gas is seen in nondistended stomach. Scattered gas is seen in non-distended small bowel loo ps. Gas and fecal material is seen in non-distended colon. Moderate axial joint space loss in both hi ps. No free air. Loop recorder overlies the heart. IMPRESSION: Overall nonobstructive bowel gas pattern.
[2022-10-16 07:51] VITALS: BP 143/87; PULSE 54; RESP 16
[2022-10-16] MEDS ORDERED: METOCLOPRAMIDE 5 MG/ML 2 ML VIAL IVP STA (08:12)
[2022-10-16 08:32] LABS: Appearance,Urine Clear (Clear); Bilirubin,Urine Negative (Negative); Blood,Urine Trace (Negative); Color,Urine Yellow; Glucose,Urine (UA) Negative (Negative); Ketones,Urine Negative (Negative); Leukocyte Esterase,Urine Negative (Negative); Mucus,Urine Rare /hpf; Nitrite,Urine Negative (Negative); Protein,Urine 1+ (Negative); RBC,Urine 8 /hpf (0-5); Specific Gravity,Urine 1.016 (1.001-1.035); Urobilinogen,Urine <2.0 mg/dL (<2.0); WBC,Urine 1 /hpf (0-5)
[2022-10-16] MEDS ORDERED: ACET/COD 300 MG/30 MG STARTER PACK 6 TAB BTL PO STA (08:39)
== END 2022-10-16 08:52 | disposition home or self-care (01) ==
LOC: EC 05:59
DX: N20.0 Calculus of kidney (principal); I10 Essential (primary) hypertension; I48.91 Unspecified atrial fibrillation; E11.9 Type 2 diabetes mellitus without complications; E78.5 Hyperlipidemia, unspecified; M19.90 Unspecified osteoarthritis, unspecified site; Z79.4 Long term (current) use of insulin; Z79.899 Other long term (current) drug therapy
CPT/HCPCS: 36415; 80053; 83690; 85025; 81001; 74018; 99284; 96374; 96375 ×3; 96361 ×2; J2765; J2405; J1885; J1170

== ENCOUNTER → 2023-01-14 | Outpatient (CLI) | payer MEDICARE, OTHER ==
--- NOTE | 2023-01-14 12:55 | US ---
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 Lt Kidney: 121 x 5.3 x 4.0 cm RESISTANCE INDEX Right: Left: RA/AO RATIO (< 3.5 ) Right: 2.8 Left: 1.5 RA VELOCITY ( < 180 cm/s) Right: 301.9 Left: 157 IMPRESSION: No sonographic evidence to suggest renal artery stenosis.
== END | disposition home or self-care (01) ==
LOC: RADUSWWP 10:04
PROVIDERS: ATTEND Internal Medicine Clinical Cardiac Electrophysiology
DX: Q27.1 Congenital renal artery stenosis (principal)
CPT/HCPCS: 93975

== ENCOUNTER → 2023-04-20 | Outpatient (CLI) | payer MEDICARE, OTHER ==
[2023-04-20 11:05] LABS: Basophils # (A) 0.03 X 10*3/uL (0.00-0.10); Basophils % (A) 0.3 %; Eosinophils # (A) 0.17 X 10*3/uL (0.04-0.35); Eosinophils % (A) 1.8 %; HCT 28.1 % (39.6-50.0); HGB 8.7 g/dL (13.0-17.0); Lymphocytes # (A) 2.38 X 10*3/uL (0.90-5.00); Lymphocytes % (A) 25.6 %; MCH 29.1 pg (27.0-32.0); Mean Platelet Volume 10.9 FL (9.5-12.2); Monocytes # (A) 0.85 X 10*3/uL (0.20-1.00); Monocytes % (A) 9.1 %; NRBC Per 100 WBC 0 X 10*3/uL (0.00-0.01); Neutrophils # (A) 5.82 X 10*3/uL (1.80-7.70); Neutrophils % (A) 62.8 %; Platelet Count 176 X 10*3/uL (140-440); RBC 2.99 X 10*6/uL (4.40-5.60); WBC 9.29 X 10*3/uL (4.50-10.00)
[2023-04-20 11:25] LABS: Blood Urea Nitrogen 47.6 mg/dL (9.0-27.0); Calcium 9.5 mg/dL (8.7-10.3); Carbon Dioxide 16.1 mmol/L (21.6-31.8); Chloride 114 mmol/L (96-109); Glucose 87 mg/dL (70-110); Iron 62 UG/DL (65-175); Magnesium 1.9 mg/dL (1.5-2.4); Phosphorus 4.1 mg/dL (2.4-5.1); Potassium 5.6 mmol/L (3.5-5.5); Sodium 142 mmol/L (135-145); Total Iron Binding Capacity 307 UG/DL (228-460)
[2023-04-20 11:26] LABS: Albumin 4.3 g/dL (3.8-4.9); Ferritin 75.3 ng/mL (22.0-322.0)
[2023-04-20 18:33] LABS: Appearance,Urine Clear (Clear); Bilirubin,Urine Negative (Negative); Blood,Urine Negative (Negative); Color,Urine Yellow (Yellow); Ketones,Urine Negative (Negative); Nitrite,Urine Negative (Negative); Specific Gravity,Urine 1.014 (1.001-1.030); Urobilinogen,Urine 0.2 E.U./DL
== END | disposition home or self-care (01) ==
LOC: LABWHC1 07:14
PROVIDERS: ATTEND Nurse Practitioner Family
DX: E55.9 Vitamin D deficiency, unspecified (principal); N25.81 Secondary hyperparathyroidism of renal origin; M10.9 Gout, unspecified; N39.0 Urinary tract infection, site not specified; N18.32 Chronic kidney disease, stage 3b; D63.1 Anemia in chronic kidney disease; R80.9 Proteinuria, unspecified
CPT/HCPCS: 36415; 80048; 81003; 82040; 82043; 82306; 82570; 82728; 83540; 83550; 83735; 83970; 84100; 84550; 85025

== ENCOUNTER → 2023-05-06 | Outpatient (CLI) | payer MEDICARE, OTHER ==
[2023-05-06 16:08] LABS: BUN/Creat Ratio 21.93 Ratio (12.00-20.00); Blood Urea Nitrogen 63.6 mg/dL (9.0-27.0); Calcium 9.7 mg/dL (8.7-10.3); Carbon Dioxide 16.9 mmol/L (21.6-31.8); Chloride 110 mmol/L (96-109); Glucose 140 mg/dL (70-110); Potassium 6.1 mmol/L (3.5-5.5); Sodium 139 mmol/L (135-145)
== END | disposition home or self-care (01) ==
LOC: LABWHC1 07:41
PROVIDERS: ATTEND Internal Medicine Nephrology
DX: N18.32 Chronic kidney disease, stage 3b (principal)
CPT/HCPCS: 36415; 80048

== ENCOUNTER 2023-05-16 16:42 | Emergency (ER) | payer MEDICARE, OTHER ==
--- NOTE | 2023-05-16 18:21 | ED ---
Extremity Problem HPI - General Source: patient Mode of arrival: ambulatory Limitations: no limitations <Manpreet Drew - Last Filed: 05/16/23 18:23> - General Source: patient, RN notes reviewed Mode of arrival: ambulatory Limitations: no limitations <Ella Musa - Last Filed: 05/17/23 00:36> - General Chief complaint: Extremity Problem,Nontraumatic Stated complaint: right leg swelling Time Seen by Provider: 05/16/23 18:20 - History of Present Illness Initial comments: 72-year-old male presenting to the ED with a chief complaint of leg swelling. Patient states today he noticed swelling to his right lower leg. Denies chest pain or shortness of breath. (Manpreet Drew) 72-year-old male presents to the emergency department chief complaint of right leg swelling. He states that he noticed this today when he was walking up the stairs because his right leg felt tight when walking. He does report slight swelling in the left leg. He denies redness, pain to the legs. He denies fever, chills, chest pain, shortness of breath. (Ella Musa) - Related Data Home Medications Medication Instructions Recorded Confirmed Insulin NPH Hum/Reg Insulin Hm 70 unit SQ BID@0600,1800 12/11/14 05/16/23 [NovoLIN 70-30 100 UNIT/ML VIAL] Metoprolol Tartrate [Lopressor] 100 mg PO BID@0600,1800 12/11/14 05/16/23 Rivaroxaban [Xarelto] 20 mg PO DAILY@0600 09/08/18 05/16/23 Clopidogrel [Plavix] 75 mg PO DAILY@1800 02/24/22 05/16/23 Ferrous Sulfate [Iron (65 MG 325 mg PO DAILY@0600 02/24/22 05/16/23 Elemental)] Rosuvastatin Calcium [Crestor] 40 mg PO DAILY@1800 02/24/22 05/16/23 Cholecalciferol [Vitamin D3 (125 125 mcg PO DAILY 05/04/23 05/16/23 Mcg = 5000 Iu)] Sodium Bicarbonate Tab 650 mg PO BID@0600,1800 05/04/23 05/16/23 Darbepoetin Erik [Aranesp] 1 dose SQ Q14D 05/16/23 05/16/23 amLODIPine [Norvasc] 10 mg PO DAILY@0600 05/16/23 05/16/23 Allergies Allergy/AdvReac Type Severity Reaction Status Date / Time No Known Allergies Allergy Verified 05/16/23 21:22 Review of Systems ROS Other: All systems not noted in ROS Statement are negative. <Manpreet Drew - Last Filed: 05/16/23 18:23> ROS Other: All systems not noted in ROS Statement are negative. <Ella Musa - Last Filed: 05/17/23 00:36> ROS Statement: Those systems with pertinent positive or pertinent negative responses have been documented in the HPI. Past Medical History Past Medical History: Atrial Fibrillation, Diabetes Mellitus, Hyperlipidemia, Hypertension, Osteoarthritis (OA), Renal Disease Additional Past Medical History / Comment(s): Stage 3 Kidney Disease, anemia, History of Any Multi-Drug Resistant Organisms: None Reported Past Surgical History: Ablation, Back Surgery, Cardiac Ablation, Heart Catheterization With Stent, Orthopedic Surgery Additional Past Surgical History / Comment(s): Left knee surgery., cardiac stent 2019 (caught prior to any issue), Past Anesthesia/Blood Transfusion Reactions: Motion Sickness Past Psychological History: No Psychological Hx Reported Smoking Status: Never smoker Past Alcohol Use History: None Reported Past Drug Use History: None Reported - Past Family History Mother Family Medical History: Cancer <Manpreet Drew - Last Filed: 05/16/23 18:23> General Exam Limitations: no limitations <Manpreet Drew - Last Filed: 05/16/23 18:23> Limitations: no limitations General appearance: alert, in no apparent distress Head exam: Present: atraumatic, normocephalic, normal inspection Eye exam: Present: normal appearance, PERRL, EOMI. Absent: scleral icterus, conjunctival injection, periorbital swelling ENT exam: Present: normal exam, mucous membranes moist Neck exam: Present: normal inspection. Absent: tenderness, meningismus, lymphadenopathy Respiratory exam: Present: normal lung sounds bilaterally. Absent: respiratory distress, wheezes, rales, rhonchi, stridor Cardiovascular Exam: Present: regular rate, normal rhythm, normal heart sounds. Absent: systolic murmur, diastolic murmur, rubs, gallop, clicks GI/Abdominal exam: Present: soft, normal bowel sounds. Absent: distended, tenderness, guarding, rebound, rigid Extremities exam: Present: full ROM, normal capillary refill, pedal edema, other (DP and PT pulses 2+, 2+ pitting edema and right lower extremity, 1+ pitting edema in left lower extremity). Absent: tenderness Back exam: Present: normal inspection Neurological exam: Present: alert, oriented X3 Psychiatric exam: Present: normal affect, normal mood Skin exam: Present: warm, dry, intact, normal color. Absent: rash <Ella Musa - Last Filed: 05/17/23 00:36> - General Exam Comments Initial Comments: Visual Physical Exam Vital signs reviewed General: Well-appearing, nontoxic, no acute distress. Head: Normocephalic, atraumatic Eyes: PERRLA, EOMI ENT: Airway patent Chest: Nonlabored breathing Skin: No visual rash, normal skin tone Neuro: Alert and oriented 3 Musculoskeletal: No gross abnormalities (Manpreet Drew) Course Vital Signs 05/16/23 05/16/23 05/16/23 17:02 19:20 20:00 Temperature 97.7 F Pulse Rate 63 54 L 59 L Respiratory 18 12 18 Rate Blood Pressure 119/67 165/72 165/72 O2 Sat by Pulse 98 98 98 Oximetry 05/16/23 05/16/23 05/16/23 21:00 22:00 22:24 Temperature 97.9 F Pulse Rate 57 L 56 L Respiratory 16 15 Rate Blood Pressure 153/68 151/79 O2 Sat by Pulse 98 98 Oximetry Medical Decision Making <Manpreet Drew - Last Filed: 05/16/23 18:23> - Lab Data Result diagrams: 05/16/23 18:57 05/16/23 18:57 <Ella Musa - Last Filed: 05/17/23 00:36> - Medical Decision Making Quicknote portion performed. Signed Manpreet Drew PA-C (Manpreet Drew) Was pt. sent in by a medical professional or institution ([facility] Chow, [facility] [employer], urgent care, hospital, or intermediate...) When possible be specific @ -No Did you speak to anyone other than the patient for history (EMS, parent, family, police, friend...)? What history was obtained from this source @ -No Did you review nursing and triage notes (agree or disagree)? Why? @ -I reviewed and agree with nursing and triage notes Were old charts reviewed (outside hosp., previous admission, EMS record, old EKG, old radiological studies, urgent care reports/EKG's, intermediate records)? Report findings @ -No old charts were reviewed Differential Diagnosis (chest pain, altered mental status, abdominal pain women, abdominal pain men, vaginal bleeding, weakness, fever, dyspnea, syncope, headache, dizziness, GI bleed, back pain, seizure, CVA, palpatations, mental health, musculoskeletal)? @ -DVT, CHF, renal failure, this list is not all-inclusive EKG interpreted by me (3pts min.). @ -EKG@1857 shows sinus bradycardia rate 55, RI 204, QRS 91, QTQTc [id number] X-rays interpreted by me (1pt min.). @ -None done CT interpreted by me (1pt min.). @ -None done U/S interpreted by me (1pt. min.). @ -US right lower extremity shows no evidence of acute DVT What testing was considered but not performed or refused? (CT, X-rays, U/S, labs)? Why? @ -None What meds were considered but not given or refused? Why? @ -None Did you discuss the management of the patient with other professionals (stephanie rand idawson Chow, PA, [facility] [employer], lab, RT, psych nurse, school social worker, chemist water purification, teacher, press officer, lead case manager)? Give summary @ -No Was smoking cessation discussed for >3mins.? @ -No Was critical care preformed (if so, how long)? @ -No Were there social determinants of health that impacted care today? How? (Homelessness, low income, unemployed, alcoholism, drug addiction, transportatio n, low edu. Level, literacy, decrease access to med. care, detention, rehab)? @ -No Was there de-escalation of care discussed even if they declined (Discuss DNR or withdrawal of care, Hospice)? DNR status @ -No What co-morbidities impacted this encounter? (DM, HTN, Smoking, COPD, CAD, Cancer, CVA, ARF, Chemo, Hep., AIDS, mental health diagnosis, sleep apnea, morbid obesity)? @ -None Was patient admitted / discharged? Hospital course, mention meds given and route, prescriptions, significant lab abnormalities, going to OR and other pertinent info. @ -Discharged. Patient presented to the emergency department chief complaint of right lower extremity swelling without erythema or warmth. This started today. Ultrasound of the right lower extremity shows no evidence of DVT. Laboratory studies obtained. CBC shows done GC 10.0, hemoglobin 9.4 this is baseline for the patient; CMP shows sodium 139, potassium 4.9, creatinine 2.41 which is also baseline for the patient, patient has stage IV CKD; negative troponin; BNP 492. Considered Lasix patient is going to follow up with his primary care provider. Patient receiving agreeable with discharge plan. Patient stable at time of discharge. Case discussed with Dr. Chen. R Undiagnosed new problem with uncertain prognosis? @ -No Drug Therapy requiring intensive monitoring for toxicity (Heparin, Nitro, Insulin, Cardizem)? @ -No Were any procedures done? @ -No Diagnosis/symptom? @ -Lower extremity edema Acute, or Chronic, or Acute on Chronic? @ -Acute Uncomplicated (without systemic symptoms) or Complicated (systemic symptoms)? @ -Uncomplicated Side effects of treatment? @ -No Exacerbation, Progression, or Severe Exacerbation? @ -No Poses a threat to life or bodily function? How? (Chest pain, USA, MS, pneumonia, PE, COPD, DKA, ARF, appy, cholecystitis, CVA, Diverticulitis, Homicidal, Suicidal, threat to staff... and all critical care pts) @ -No (Ella Musa) - Lab Data Lab Results 05/16/23 05/16/23 05/16/23 Range/Units 18:57 18:57 18:57 WBC 10.0 (3.8-10.6) k/uL RBC 3.19 L (4.30-5.90) m/uL Hgb 9.4 L (13.0-17.5) gm/dL Hct 29.4 L (39.0-53.0) % MCV 92.0 (80.0-100.0) fL MCH 29.5 (25.0-35.0) pg MCHC 32.1 (31.0-37.0) g/dL RDW 13.8 (11.5-15.5) % Plt Count 185 (150-450) k/uL MPV 8.1 Neutrophils % 78 % Lymphocytes % 14 % Monocytes % 6 % Eosinophils % 1 % Basophils % 0 % Neutrophils # 7.8 H (1.3-7.7) k/uL Lymphocytes # 1.4 (1.0-4.8) k/uL Monocytes # 0.6 (0-1.0) k/uL Eosinophils # 0.1 (0-0.7) k/uL Basophils # 0.0 (0-0.2) k/uL PT 11.1 (10.0-12.5) sec INR 1.0 (<1.2) APTT 28.9 (22.0-30.0) sec Sodium 139 (137-145) mmol/L Potassium 4.9 (3.5-5.1) mmol/L Chloride 109 H (98-107) mmol/L Carbon Dioxide 19 L (22-30) mmol/L Anion Gap 11 mmol/L BUN 45 H (9-20) mg/dL Creatinine 2.41 H (0.66-1.25) mg/dL Est GFR (CKD-EPI)AfAm 30 (>60 ml/min/1.73 sqM) Est GFR (CKD-EPI)NonAf 26 (>60 ml/min/1.73 sqM) Glucose 158 H (74-99) mg/dL Calcium 9.3 (8.4-10.2) mg/dL Magnesium 1.7 (1.6-2.3) mg/dL Total Bilirubin 0.7 (0.2-1.3) mg/dL AST 27 (17-59) U/L ALT 45 (4-49) U/L Alkaline Phosphatase 76 (38-126) U/L Troponin I (0.000-0.034) ng/mL NT-Pro-B Natriuret Pep 492 pg/mL Total Protein 7.2 (6.3-8.2) g/dL Albumin 4.1 (3.5-5.0) g/dL 05/16/23 Range/Units 18:57 WBC (3.8-10.6) k/uL RBC (4.30-5.90) m/uL Hgb (13.0-17.5) gm/dL Hct (39.0-53.0) % MCV (80.0-100.0) fL MCH (25.0-35.0) pg MCHC (31.0-37.0) g/dL RDW (11.5-15.5) % Plt Count (150-450) k/uL MPV Neutrophils % % Lymphocytes % % Monocytes % % Eosinophils % % Basophils % % Neutrophils # (1.3-7.7) k/uL Lymphocytes # (1.0-4.8) k/uL Monocytes # (0-1.0) k/uL Eosinophils # (0-0.7) k/uL Basophils # (0-0.2) k/uL PT (10.0-12.5) sec INR (<1.2) APTT (22.0-30.0) sec Sodium (137-145) mmol/L Potassium (3.5-5.1) mmol/L Chloride (98-107) mmol/L Carbon Dioxide (22-30) mmol/L Anion Gap mmol/L BUN (9-20) mg/dL Creatinine (0.66-1.25) mg/dL Est GFR (CKD-EPI)AfAm (>60 ml/min/1.73 sqM) Est GFR (CKD-EPI)NonAf (>60 ml/min/1.73 sqM) Glucose (74-99) mg/dL Calcium (8.4-10.2) mg/dL Magnesium (1.6-2.3) mg/dL Total Bilirubin (0.2-1.3) mg/dL AST (17-59) U/L ALT (4-49) U/L Alkaline Phosphatase (38-126) U/L Troponin I <0.012 (0.000-0.034) ng/mL NT-Pro-B Natriuret Pep pg/mL Total Protein (6.3-8.2) g/dL Albumin (3.5-5.0) g/dL Disposition <Manpreet Drew - Last Filed: 05/16/23 18:23> Is patient prescribed a controlled substance at d/c from ED?: No <Ella Musa - Last Filed: 05/17/23 00:36> Clinical Impression: Lower extremity edema Disposition: HOME SELF-CARE Condition: Stable Instructions (If sedation given, give patient instructions): Leg Edema (ED) Additional Instructions: Please follow up with your primary care provider. Return to the emergency department for new or worsening symptoms. Referrals: Wale Moncada MD [Primary Care Provider] - 1-2 days
[2023-05-16 19:26] LABS: Basophils % (A) 0 %; Eosinophils # (A) 0.1 k/uL (0-0.7); Eosinophils % (A) 1 %; HCT 29.4 % (39.0-53.0); HGB 9.4 gm/dL (13.0-17.5); Lymphocytes # (A) 1.4 k/uL (1.0-4.8); Lymphocytes % (A) 14 %; MCH 29.5 pg (25.0-35.0); MCHC 32.1 g/dL (31.0-37.0); Mean Platelet Volume 8.1; Monocytes # (A) 0.6 k/uL (0-1.0); Monocytes % (A) 6 %; Neutrophils # (A) 7.8 k/uL (1.3-7.7); Neutrophils % (A) 78 %; Platelet Count 185 k/uL (150-450); RBC 3.19 m/uL (4.30-5.90); RDW 13.8 % (11.5-15.5)
[2023-05-16 19:53] LABS: ALT 45 U/L (4-49); AST 27 U/L (17-59); African American GFR (CKD) 30 (>60 ml/min/1.73 sqM); Albumin 4.1 g/dL (3.5-5.0); Alkaline Phosphatase 76 U/L (38-126); Anion Gap 11 mmol/L; Blood Urea Nitrogen 45 mg/dL (9-20); Calcium 9.3 mg/dL (8.4-10.2); Carbon Dioxide 19 mmol/L (22-30); Chloride 109 mmol/L (98-107); Glucose 158 mg/dL (74-99); Magnesium 1.7 mg/dL (1.6-2.3); Non-African American GFR(CKD) 26 (>60 ml/min/1.73 sqM); Potassium 4.9 mmol/L (3.5-5.1); Sodium 139 mmol/L (137-145); Total Bilirubin 0.7 mg/dL (0.2-1.3); Total Protein 7.2 g/dL (6.3-8.2)
[2023-05-16 19:54] LABS: Partial Thromboplastin Time 28.9 sec (22.0-30.0); Prothrombin Time 11.1 sec (10.0-12.5)
[2023-05-16 20:01] LABS: NT-Pro-B-Type Natriuretic Pept 492 pg/mL
--- NOTE | 2023-05-16 21:48 | US ---
EXAMINATION TYPE: US venous doppler duplex LE RT DATE OF EXAM: 05/16/2023 6:20 PM COMPARISON: NONE CLINICAL INDICATION: Male, 72 years old with history of r/o dvt; Swelling in right leg today. No hx o f DVT. On blood thinners SIDE PERFORMED: Right TECHNIQUE: The lower extremity deep venous system is examined utilizing real time linear array sonog amanda with graded compression, doppler sonography and color-flow sonography. VESSELS IMAGED: Common Femoral Vein Deep Femoral Vein Greater Saphenous Vein * Femoral Vein Popliteal Vein Small Saphenous Vein * Proximal Calf Veins (* superficial vessels) Imaged veins fill with normal color signal, show the expected waveforms and compressibility. No evide nce of intraluminal filling defect. Right Leg: No evidence for DVT IMPRESSION: No evidence of DVT in the right lower extremity.
[2023-05-16 22:43] VITALS: BP 151/79; PULSE 56; RESP 15; TEMP 97.9
== END 2023-05-16 22:24 | disposition home or self-care (01) ==
LOC: EC 16:42
DX: R22.43 Localized swelling, mass and lump, lower limb, bilateral (principal); E11.22 Type 2 diabetes mellitus with diabetic chronic kidney disease; E78.5 Hyperlipidemia, unspecified; I12.9 Hypertensive chronic kidney disease with stage 1 through stage 4 chronic kidney disease, or unspecified chronic kidney disease; I48.91 Unspecified atrial fibrillation; M19.90 Unspecified osteoarthritis, unspecified site; N18.30 Chronic kidney disease, stage 3 unspecified; Z79.01 Long term (current) use of anticoagulants; Z79.02 Long term (current) use of antithrombotics/antiplatelets; Z79.4 Long term (current) use of insulin; Z79.899 Other long term (current) drug therapy; Z95.5 Presence of coronary angioplasty implant and graft
CPT/HCPCS: 36415; 80053; 83735; 83880; 84484; 85025; 85610; 85730; 93005; 99284